=== PATIENT | male | born 1965 | race Caucasian/White ===

== ENCOUNTER 2020-01-26 11:56 | Emergency (ER) | payer MEDICARE, MEDICAID, SELFPAY ==
[2020-01-26 12:20] VITALS: BP 136/85; PULSE 91; RESP 16; TEMP 37.1; O2SAT 98
--- NOTE | 2020-01-26 12:29 | ED.NAVMDI ---
HPI - Nausea/Vomiting/Diarrhea General Chief complaint: Unspecified Stated complaint: opioid withdraw Time Seen by Provider: 01/26/20 12:25 Source: patient Mode of arrival: ambulatory Limitations: no limitations History of Present Illness HPI Narrative: 54-year-old man comes in today complaining of shaking, sweating, diarrhea and vomiting which started the last day or so. He states that up until a few days ago he was taking 15 mg of long-acting morphine twice a day for chronic back pain. He decided that he no longer wanted take the medicine and quit. He denies any chest pain, shortness breath, blood in his stool, blood in his vomitus, weakness or syncope. Patient was seen [facility] and on January 18 he spoke to them regarding a scheduled virtual visit, telling them that he was no longer need their services and be transferring to a new doctor. MD elicited complaint: nausea, vomiting and diarrhea Onset (ago): day(s) (1-2) Description of vomiting: watery Description of diarrhea: watery Associated nausea: Yes Associated abdominal pain: No Location of pain: none Exacerbating factors: eating Relieving factors: none Associated symptoms: diaphoresis, loss of appetite and nausea/vomiting Treatment prior to arrival: none Related Data Home Medications Medication Instructions Recorded Confirmed atorvastatin 20 mg PO DAILY 01/26/20 01/26/20 duloxetine 60 mg PO DAILY 01/26/20 01/26/20 metoprolol succinate 25 mg PO DAILY 01/26/20 01/26/20 pregabalin 150 mg PO BID 01/26/20 01/26/20 Allergies Allergy/AdvReac Type Severity Reaction Status Date / Time No Known Allergies Allergy Verified 01/26/20 13:46 Review of Systems Constitutional: Constitutional: Denies chills and Denies fever(s) Eyes: Eyes: Denies change in vision and Denies photophobia ENT: Denies dysphagia, Denies nasal congestion and Denies sore throat Cardiovascular: Cardiovascular: Denies chest pain and Denies radiating jaw, neck or arm pain Respiratory: Respiratory: Denies cough, Denies dyspnea and Denies wheezing Gastrointestinal: Gastrointestinal: Denies abdominal pain, Reports diarrhea, Reports nausea and Reports vomiting Genitourinary: Genitourinary: Denies hematuria, Denies dysuria and Denies urinary frequency Integumentary/Breasts: Skin/Breast: Denies pruritus, Denies erythema and Denies rash Neurologic: Denies vertigo, Denies dizziness, Denies syncope, Denies focal weakness and Denies numbness Psychiatric: Psychiatric: Denies anxiety and Denies depression Endocrine: Endocrine: Denies fatigue, Denies polydipsia and Denies polyuria Hematologic/Lymphatic: Hematologic/Lymphatic: Denies easy bleeding and Denies easy bruising Allergic/Immunologic: Allergic/Immunologic: Denies lip swelling, Denies throat swelling and Denies tongue swelling PMFSH Past Medical History Medical History Chronic back pain Surgical History Surgical History H/O lumbosacral spine surgery H/O shoulder surgery left x2 History of ankle surgery right Hx of right knee surgery S/P insertion of spinal cord stimulator Social History Social History Alcohol intake: former Alcohol use details: last used several months ago Substance use: current Substance use type: marijuana Living arrangements: with family Gender identity (if verbalized by the patient): Male Exam Const: General: healthy appearing and alert Orientation/consciousness: patient oriented x3 Limitations: no limitations Other: mild acute distress. HENMT: Head: normal to inspection Ears: external ears normal, TM's normal bilaterally and EAC's normal General nose exam: Normal nares present Face and sinus: normal facial exam Mouth: Yes moist mucous membranes Throat: posterior oropharynx normal Eyes: Cornea: corneas normal
[2020-01-26] MEDS: SODIUM CHLORIDE 0.9% IV 1,000 ML 999 ML IV CONT (12:39)
[2020-01-26] MEDS: ONDANSETRON INJ 4 MG/2 ML VIAL IV PUSH (12:39)
[2020-01-26 12:51] LABS: Basophils Absolute Auto 0.09 K/mm3 (0.00-0.10); Basophils Percent Auto 0.8 % (0.0-1.0); Eosinophils Absolute Auto 0.18 K/mm3 (0.02-0.50); Eosinophils Percent Auto 1.6 % (1.0-6.0); Immature Granulocyte Absolute 0.03 K/mm3 (0.00-0.00); Immature Granulocyte Percent A 0.3 % (0.0-0.0); Lymphocytes Absolute Auto 3.16 K/mm3 (1.10-4.50); Lymphocytes Percent Auto 28.7 % (18.0-42.0); Mean Corpuscular Volume 91.2 fL (78.0-102.0); Mean Platelet Volume 12.5 fl (8.7-11.0); Monocytes Absolute Auto 0.91 K/mm3 (0.10-0.90); Monocytes Percent Auto 8.3 % (2.0-11.0); Neutrophils Absolute Auto 6.7 K/mm3 (1.7-7.2); Neutrophils Percent Auto 60.3 % (50.0-70.0); Platelet Count Result 235 K/mm3 (150-420); Red Blood Count 5.48 M/mm3 (4.70-6.10); Red Cell Distribution Width 12.2 % (11.6-14.4)
[2020-01-26 13:06] LABS: Alanine Aminotransferase 83 U/L (16-63); Albumin Level 3.8 g/dL (3.4-5.0); Alkaline Phosphatase 79 U/L (46-116); Anion Gap 10 mmol/L (8-16); Aspartate Amino Transferase 47 U/L (15-37); Bilirubin,Total 0.9 mg/dL (0.00-1.00); Blood Urea Nitrogen 13 mg/dL (7-18); Calcium 9.4 mg/dL (8.5-10.1); Carbon Dioxide 25 mmol/L (21-32); Chloride 104 mmol/L (98-108); Estimated Glomerular Filt Rate > 60; Glucose 119 mg/dL (70-99); Osmolality Calculated 289 mOsm/kg (285-295); Potassium 3.9 mmol/L (3.5-5.1); Sodium 139 mmol/L (136-145); Total Protein 7.8 g/dL (6.4-8.2)
[2020-01-26 13:47] VITALS: BP 150/96
== END 2020-01-26 13:51 | disposition home or self-care (01) ==
PROVIDERS: Emergency Provider Emergency Medicine
DX: F11.23 Opioid dependence with withdrawal (principal)
CPT/HCPCS: 36415; 80053; 85025; 96361; 96374; 99283; 99284; J2405; J7030

== ENCOUNTER 2021-05-02 13:02 | Outpatient (RCR) | payer MEDICARE, MEDICAID, SELFPAY ==
--- NOTE | 2021-05-02 14:16 | PTOPEVAL ---
Thank you for referring Baldev Natarajan II to [facility].? The patient is scheduled to be seen for therapy? __3__x/week for 12 visits. Please review, sign, date and return this plan of care YUNG. I agree with and certify that the following plan of care is medically necessary. Referring Physician Date Admitting Provider: Attending Provider: Mikael Dowd, MD Referring Provider: *PT Outpatient Evaluation Start: 05/02/21 13:05 Freq: Status: Active Protocol: Document 05/02/21 13:05 ELPIDIO (Rec: 05/02/21 14:15 ELPIDIO [email or web address]) Therapy Assessment Status Assessment Status Assessment Status Evaluation Outpatient Past Medical History Cardiovascular History Hx Hypercholesterolemia Yes Hx Hypertension Yes Musculoskeletal History Hx Arthritis Yes Hx Back Injury Yes Hx Back Pain Yes Hx Orthopedic Surgery Yes: BACK, CTR, ANKLE, HIP Pain History Has Past Pain Affected Your Daily Life Yes History of Long-Term Prescription Pain Yes Medication Use (Opiates) Evaluation Information Problem Diagnosis left shoulder pain Onset 03/02/21 Subjective Information Pt. reports that he began Query Text:As Reported By Patient/ developing left shoulder pain Family a couple months ago. He reports no incident, just a gradual onset of pain. He reports that he will have a pop in his left shoulder with movement. He states that any reaching overhead or behind his back is painful. He reports that he has had 2 rotator cuff repairs at the left shoulder in the past. He states that he has difficulty with performing basic household work due to pain and cannot sleep well due to left shoulder pain. He reports that his goal is to decrease his left shoulder pain. Prior Level of Function Activity Level (Last 3 Months) Hand Dominance Ambidextrous Activity of Daily Living Ability Independent Indoor/Home Mobility Independent Community Mobility Independent Stairs Ability Independent Functional Cognition (Planning, Shopping Needs Some Help , Taking Medications) Cooking Yes Cleaning Yes Laundry Yes
--- NOTE | 2021-07-19 07:45 | PCPTNOTE ---
Mr. Natarajan attended a total of 5 treatment sessions from 05/02/21 to 05/26/21. He has failed to contact the clinic and cannot be reached via telephone. He will be discharged from our care. Refer to pt. last Rx note for pt. discharge status.
== END 2021-05-26 13:52 | disposition home or self-care (01) ==
LOC: CHSPT 13:02
PROVIDERS: Visit Provider Anesthesiology Pain Medicine
DX: M25.512 Pain in left shoulder (principal)
CPT/HCPCS: 97014; 97110; 97161; G0283

== ENCOUNTER 2021-06-01 09:13 | Outpatient (CLI) | payer MEDICARE, SELFPAY ==
[2021-06-01 10:18] LABS: SARS-CoV-2 RNA PCR Negative (Negative)
== END 2021-06-01 09:14 | disposition home or self-care (01) ==
LOC: CHSLAB 09:16
PROVIDERS: PCP Family Medicine Sports Medicine; Visit Provider Nurse Practitioner Family
DX: R05.9 Cough, unspecified (principal); Z20.822 Contact with and (suspected) exposure to COVID-19
CPT/HCPCS: C9803; U0003; U0005

== ENCOUNTER 2021-08-27 12:01 | Emergency (ER) | payer MEDICARE, MEDICAID, SELFPAY ==
[2021-08-27 12:11] VITALS: BP 150/83; PULSE 95; RESP 16; TEMP 36.4; O2SAT 98
--- NOTE | 2021-08-27 12:17 | ED.UPPEXIN ---
HPI - Extremity Injury (Upper) General Chief Complaint: Wound/Laceration Stated Complaint: R index finger lac Time Seen by Provider: 08/27/21 12:17 Source: patient and RN notes reviewed Mode of arrival: ambulatory Limitations: no limitations History of Present Illness complaint: injury to: right Onset (ago): minute(s) (30) Other Extremity Injury: Right: fingers (index) Handedness: right Place: home Severity: mild Relieving factors: rest Exacerbating factors: movement of extremity Context: laceration Associated symptoms: denies other symptoms Related Data Home Medications Medication Instructions Recorded Confirmed atorvastatin 20 mg PO DAILY 01/26/20 08/27/21 duloxetine 60 mg PO DAILY 01/26/20 08/27/21 metoprolol succinate 25 mg PO DAILY 01/26/20 08/27/21 pregabalin 150 mg PO BID 01/26/20 08/27/21 Allergies Allergy/AdvReac Type Severity Reaction Status Date / Time No Known Allergies Allergy Verified 08/27/21 12:17 Review of Systems Review of Systems: All systems reviewed & are unremarkable except as noted in HPI and below PMFSH Past Medical History Medical History (Updated 08/27/21 @ 13:03 by Martinez Zhu MD) Chronic back pain COPD (chronic obstructive pulmonary disease) Depression Hypertension Surgical History Surgical History H/O lumbosacral spine surgery H/O shoulder surgery left x2 History of ankle surgery right Hx of right knee surgery S/P insertion of spinal cord stimulator Social History Social History (Updated 08/27/21 @ 12:28 by Martinez Zhu MD) Smoking status: Current every day smoker Tobacco type: cigarettes Alcohol intake: former Alcohol use details: last used several months ago Substance use: current Substance use type: marijuana Gender identity (if verbalized by the patient): Male Exam Const: General: healthy appearing, no acute distress and alert Nutritional Appearance: well nourished Orientation/consciousness: patient oriented x3 HENMT: Head: normal to inspection Ears: external ears normal Eyes: Conjunctivae: conjunctivae normal Pupils: Equal, round and reactive pupils present EOM: EOMs intact bilaterally Neck: Neck: normal visual inspection Resp: Effort & Inspection: normal respiratory effort Auscultation: clear to auscultation bilaterally Cardio: Rate: regular rate Rhythm: regular rhythm GI: GI Palp: Yes Soft to palpation and No Tenderness to palpation present (GI) Auscultation: normal bowel sounds Back/Spine/Pelvis: Cervical Spine: cervical ROM normal Thoracic/Lumbar Spine: thoraco-lumbar ROM normal Skin: General skin exam: normal color Wounds: wounds noted flap right distal 2nd finger size (3.5 cm) Neuro: General: patient oriented x3, moves all extremities, no focal motor deficits and CN's II-XI intact bilaterally Speech: normal speech Gait exam (Neuro): Normal gait present Extrem: General: normal to inspection and no clubbing, cyanosis or edema Psych: Appearance: grossly normal and well kempt Mental Status: mental status grossly normal Affect: normal affect Thought content: Yes Normal thought content present Course Vital Signs Vital signs: Vital Signs Temperature 36.4 C L 08/27/21 12:11 Pulse Rate 95 08/27/21 12:11 Respiratory Rate 16 08/27/21 12:11 Blood Pressure 150/83 H 08/27/21 12:11 Pulse Oximetry 98 08/27/21 12:11 Temperature 36.8 C 08/27/21 13:14 Pulse Rate 79 08/27/21 13:14 Respiratory Rate 16 08/27/21 13:14 Blood Pressure 132/83 08/27/21 13:14 Pulse Oximetry 100 08/27/21 13:14 Procedures Laceration Laceration 1: Date: 08/27/21 Site: hand (index, medial just distal to the DIP) Side (If applicable): right Description: flap Depth: simple, single layer Local Anesthetic: lidocaine 1% ( digital nerve block) Amount of anesthesia used (mL): 7 Pre-repair: wound explor
[2021-08-27] MEDS: TETANUS,DIPHTHERIA,AC PERTUSSIS ADULT 0.5 ML (ADACEL) IM (12:31)
[2021-08-27] MEDS: LIDOCAINE HCL 1% LOCAL INJ 20 ML VIAL INFILTRATE (12:32)
[2021-08-27 13:14] VITALS: BP 132/83; PULSE 79; RESP 16; TEMP 36.8; O2SAT 100
[2021-08-27] MEDS: NEOMYCIN/POLYMYXIN/BACITRACIN OINTMENT PACKET 1 PACKET TOPICAL (13:14)
== END 2021-08-27 13:16 | disposition home or self-care (01) ==
PROVIDERS: Emergency Provider Emergency Medicine; PCP Family Medicine Sports Medicine
DX: S61.210A Laceration without foreign body of right index finger without damage to nail, initial encounter (principal); W45.8XXA Other foreign body or object entering through skin, initial encounter; J44.9 Chronic obstructive pulmonary disease, unspecified; I10 Essential (primary) hypertension; F17.200 Nicotine dependence, unspecified, uncomplicated
CPT/HCPCS: 12001; 90471; 90715; 99282

== ENCOUNTER 2021-10-09 10:18 | Outpatient (RCR) | payer MEDICARE, MEDICAID, SELFPAY ==
--- NOTE | 2021-10-09 10:10 | PTOPEVAL ---
Thank you for referring Baldev Natarajan II to [facility].? The patient is scheduled to be seen for therapy? __3__x/week for 12 visits. Please review, sign, date and return this plan of care YUNG. I agree with and certify that the following plan of care is medically necessary. Referring Physician Date Admitting Provider: Attending Provider: Paz Doss, GRAZING AIDE Referring Provider: *PT Outpatient Evaluation Start: 10/09/21 08:59 Freq: Status: Active Protocol: Document 10/09/21 09:00 ELPIDIO (Rec: 10/09/21 09:44 ELPIDIO [email or web address]) Therapy Assessment Status Assessment Status Assessment Status Evaluation Outpatient Past Medical History Cardiovascular History Hx Hypercholesterolemia Yes Hx Hypertension Yes Musculoskeletal History Hx Arthritis Yes Hx Back Injury Yes Hx Back Pain Yes Hx Orthopedic Surgery Yes: BACK, CTR, ANKLE, HIP Pain History Has Past Pain Affected Your Daily Life Yes History of Long-Term Prescription Pain Yes Medication Use (Opiates) Evaluation Information Problem Diagnosis s/p reverse total shoulder arthroplasty Onset 09/18/21 Subjective Information Pt. reports that he underwent Query Text:As Reported By Patient/ CTR, UNT, and reverse TSA on 4 Family . He reports that he was in a sling for only 1 day following surgery. He reports that he still has constant pain on the back side of the left shoulder and into the elbow. He reports that simple tasks such as pulling up his pants is difficult. He reports that he cannot reach overhead with the left arm as well. He states that his goal for therapy is to improve his left arm mobility. Prior Level of Function Activity Level (Last 3 Months) Hand Dominance Left Activity of Daily Living Ability Independent Indoor/Home Mobility Independent Community Mobility Independent Stairs Ability Independent Functional Cognition (Planning, Shopping Independent , Taking Medications) Cooking Yes Cleaning Yes Laundry Yes Shopping Yes Driving Yes Comments Additional Prior Level of Function Pt. has some assist with Comments
--- NOTE | 2022-01-24 08:46 | PCPTNOTE ---
Mr. Natarajan attended a total of 8 treatment sessions from 10/09/21 to 11/03/21. He has failed to return to the clinic and will be discharged from our care. Refer to last daily note for pt. discharge status.
== END 2021-11-03 23:59 | disposition home or self-care (01) ==
LOC: CHSPT 10:18
PROVIDERS: Visit Provider Nurse Practitioner Family
DX: Z96.612 Presence of left artificial shoulder joint (principal); M75.102 Unspecified rotator cuff tear or rupture of left shoulder, not specified as traumatic; M12.812 Other specific arthropathies, not elsewhere classified, left shoulder; G56.02 Carpal tunnel syndrome, left upper limb; G56.22 Lesion of ulnar nerve, left upper limb; Z48.89 Encounter for other specified surgical aftercare
CPT/HCPCS: 97014; 97110; 97140; 97161; G0283

== ENCOUNTER 2022-08-16 13:00 | Outpatient (RCR) | payer MEDICARE, MEDICAID, SELFPAY ==
--- NOTE | 2022-08-22 06:43 | BUPTOPEVAL1 ---
Assessment and note entered by Sohan Conway Evaluation Information Diagnosis right shoulder pain Onset 07/25/22 Subjective Information Pt. reports that he fell onto the right shoulder about 3 weeks ago while taking out the trash. He reports that pain is located on top of the right shoulder and in front. He reports that he notices pain with reaching across the body and behind his back. He is right hand dominant. He reports pain is most notable with lifitng. Reported Pain Level Pain Score 5: Self Report Assessment PT Clinical Summary Pt. is a 57 year old male who enters the clinic with right shoulder pain. Pt. presentation on this date is consistent with right shoulder impingement syndrome. Continued skilled PT is indicated in order to improve right shoulder mobility and strength in order to improve comfort and efficiency with IADL's. Plan of Care Interventions Electrical Stimulation,Hot Pack/Cold Pack,Manual Therapy,Neuro Re-education,Therapeutic Activities, Therapeutic Exercise PT Services Indicated Yes Treatment Frequency and 2x/week x 10 visits Duration These treatments will address the objective and functional deficits as defined above. The patient will be advanced safely and appropriately in order for the patient to progress towards his/her prior level of function. Additional exercises will be introduced and as well as a comprehensive home exercise program upon discharge, if needed, ?to ensure carryover of functional gains achieved in the clinic. This treatment plan has been reviewed and agreement upon by the patient.
== END 2022-08-28 09:56 | disposition home or self-care (01) ==
LOC: CHSPT 13:00
PROVIDERS: Visit Provider Family Medicine Sports Medicine
DX: M25.511 Pain in right shoulder (principal)
CPT/HCPCS: 97110; 97140; 97161

== ENCOUNTER 2022-10-20 10:40 | Emergency (ER) | payer MEDICARE, MEDICAID, SELFPAY ==
[2022-10-20 10:43] VITALS: BP 155/85; PULSE 89; RESP 20; TEMP 36.8; O2SAT 97
--- NOTE | 2022-10-20 11:25 | ED.WOUNDLAC ---
HPI - Wound/Laceration General Chief Complaint: Wound/Laceration Stated Complaint: L finger laceration Time Seen by Provider: 10/20/22 11:00 Source: patient Mode of arrival: ambulatory Limitations: no limitations History of Present Illness HPI narrative: this is a 57-year-old gentleman presents with a laceration left 3rd finger and knuckle area of the left finger non gaping approximated with approximately1.5cm laceration that occurred earlier today while he was working on his vehicle. There is no numbness or tingling has good range of motion. Onset (ago): hour(s) Location: other Extremity Location: Left: hand ( non gaping laceration knuckle of his left 3rd finger) Place: work Related Data Home Medications Medication Instructions Recorded Confirmed atorvastatin 20 mg tablet 20 mg PO DAILY 01/26/20 10/20/22 duloxetine 60 mg capsule,delayed 60 mg PO DAILY 01/26/20 10/20/22 release metoprolol succinate 25 mg 25 mg PO DAILY 01/26/20 10/20/22 tablet,extended release 24 hr pregabalin 150 mg capsule 150 mg PO BID 01/26/20 10/20/22 Allergies Allergy/AdvReac Type Severity Reaction Status Date / Time No Known Allergies Allergy Verified 10/20/22 11:21 Review of Systems Review of Systems: All systems reviewed & are unremarkable except as noted in HPI and below PMFSH Past Medical History Medical History Chronic back pain COPD (chronic obstructive pulmonary disease) Depression Hypertension Surgical History Surgical History H/O lumbosacral spine surgery H/O shoulder surgery left x2 History of ankle surgery right Hx of right knee surgery S/P insertion of spinal cord stimulator Social History Social History Smoking status: Current every day smoker Tobacco type: cigarettes Alcohol intake: former Alcohol use details: last used several months ago Substance use: current Substance use type: marijuana Living arrangements: with family Gender identity (if verbalized by the patient): Male Exam Const: General: healthy appearing Nutritional Appearance: well nourished Orientation/consciousness: patient oriented x3 HENMT: Head: normal to inspection Eyes: Conjunctivae: conjunctivae normal Pupils: Equal, round and reactive pupils present Neck: Neck: normal visual inspection Chest: Chest palpation & inspection: normal inspection of the chest Cardio: Rate: regular rate Rhythm: regular rhythm GI: GI Palp: Yes Soft to palpation Urinary Catheter: Urinary Catheter: patent and draining Skin: General skin exam: normal color Wounds: wounds noted Neuro: General: patient oriented x3 Cranial nerves: Yes Nystagmus not present Extrem: General: normal to inspection Psych: Mental Status: mental status grossly normal Affect: normal affect Course Course Emergency Course: Patient is here today with his tetanus and did use Dermabond to close the laceration area on his left 3rd finger. Vital Signs Vital signs: Vital Signs Temperature 36.8 C 10/20/22 10:43 Pulse Rate 89 10/20/22 10:43 Respiratory Rate 20 10/20/22 10:43 Blood Pressure 155/85 H 10/20/22 10:43 Pulse Oximetry 97 10/20/22 10:43 Oxygen Delivery Room Air 10/20/22 10:43 Temperature 36.8 C 10/20/22 10:43 Pulse Rate 89 10/20/22 10:43 Respiratory Rate 20 10/20/22 10:43 Blood Pressure 155/85 H 10/20/22 10:43 Pulse Oximetry 97 10/20/22 10:43 Oxygen Delivery Room Air 10/20/22 10:43 Procedures Laceration Laceration 1: Date: 10/20/22 Time: 11:29 Site: upper extremity Side (If applicable): left Size (cm): 1.5 Description: linear Depth: simple, single layer Pre-repair: irrigated extensively ====== Skin Level ====== Skin layer closed with: dermabond ====
[2022-10-20 11:40] VITALS: BP 150/80; PULSE 82; RESP 20; TEMP 36.7; O2SAT 98
== END 2022-10-20 11:40 | disposition home or self-care (01) ==
PROVIDERS: Emergency Provider Emergency Medicine
DX: S61.213A Laceration without foreign body of left middle finger without damage to nail, initial encounter (principal); I10 Essential (primary) hypertension; F17.210 Nicotine dependence, cigarettes, uncomplicated; W45.8XXA Other foreign body or object entering through skin, initial encounter
CPT/HCPCS: 12001; 99282

== ENCOUNTER 2023-03-28 15:13 | Emergency (ER) | payer MEDICARE, MEDICAID, SELFPAY ==
--- NOTE | ~2023-03-28 | XR_ITS ---
XR hand LT min 3V DATE: 03/28/2023 15:50 INDICATION: Fall. Medial swelling TECHNIQUE: 3 views COMPARISON: None FINDINGS: There is osteophytic change at the triscaphe and first carpometacarpal joints. There is a p rominent cyst in the distal navicular bone. There is mild osteoarthritis at first metacarpophalangeal and some interphalangeal joints. No fracture, dislocation, periosteal reaction or bone destruction is detected. IMPRESSION: Benign cyst distal navicular bone Polyarticular osteoarthritis No recent fracture or dislocation is detected Reviewed, dictated and finalized at location L.
--- NOTE | ~2023-03-28 | XR_ITS ---
XR wrist LT min 3V DATE: 03/28/2023 15:50 INDICATION: Fall. Medial swelling TECHNIQUE: 4 views COMPARISON: None FINDINGS: No recent fracture is detected. There is osteophytic change of the triscaphe and first carpometacarpal joints. No chondrocalcinosis. IMPRESSION: Osteoarthritis Reviewed, dictated and finalized at location L. IMPRESSION: Osteoarthritis
[2023-03-28 15:15] VITALS: BP 149/97; PULSE 90; RESP 17; TEMP 36.9; O2SAT 96
[2023-03-28] MEDS: KETOROLAC (*BKC) 60 MG/2 ML VIAL IM (15:40)
--- NOTE | 2023-03-28 16:08 | ED.UPPEXIN ---
HPI - Extremity Injury (Upper) General Chief Complaint: Extremity Injury, Upper Stated Complaint: left hand pain Time Seen by Provider: 03/28/23 15:18 Source: patient Limitations: no limitations History of Present Illness HPI narrative: this is a 52-year-old male who presents after he fell last evening while going to the bathroom and as he returned missed sitting on the bed and injured his left hand and wrist, has a good range of motion although it is swollen and tender with touch with no numbness or tingling. complaint: injury to: left Onset (ago): day(s) Other Extremity Injury: Left: hand ( swelling) and wrist ( swelling and tenderness) Handedness: left Severity scale (1-10): 6 Context: direct blow Related Data Home Medications Medication Instructions Recorded Confirmed atorvastatin 20 mg tablet 20 mg PO DAILY 01/26/20 03/28/23 duloxetine 60 mg capsule,delayed 60 mg PO DAILY 01/26/20 03/28/23 release metoprolol succinate 25 mg 25 mg PO DAILY 01/26/20 03/28/23 tablet,extended release 24 hr tamsulosin 0.4 mg capsule 0.4 mg PO DAILY 03/28/23 03/28/23 Allergies Allergy/AdvReac Type Severity Reaction Status Date / Time No Known Allergies Allergy Verified 03/28/23 15:14 Review of Systems Review of Systems: All systems reviewed & are unremarkable except as noted in HPI and below PMFSH Past Medical History Medical History Chronic back pain COPD (chronic obstructive pulmonary disease) Depression Hypertension Surgical History Surgical History H/O lumbosacral spine surgery H/O shoulder surgery left x2 History of ankle surgery right Hx of right knee surgery S/P insertion of spinal cord stimulator Social History Social History Smoking status: Current every day smoker Tobacco type: cigarettes Alcohol intake: former Alcohol use details: last used several months ago Substance use: current Substance use type: marijuana Living arrangements: with family Gender identity (if verbalized by the patient): Male Exam Const: General: healthy appearing Nutritional Appearance: well nourished Orientation/consciousness: patient oriented x3 Limitations: no limitations Neck: Neck: normal visual inspection and no lymphadenopathy Chest: Chest palpation & inspection: normal inspection of the chest Resp: Effort & Inspection: normal respiratory effort Auscultation: clear to auscultation bilaterally Cardio: Rate: regular rate Rhythm: regular rhythm Skin: General skin exam: normal color Rashes: no rashes Neuro: General: patient oriented x3 and moves all extremities Extrem: Other: Swollen lateral left hand and wrist Psych: Mental Status: mental status grossly normal Affect: normal affect Course Course Emergency Course: patient had ice applied to his left hand and wrist was given 60mg IM Toradol and reassessment pain level has improved, x-rays reviewed and has no acute fractures. Vital Signs Vital signs: Vital Signs Temperature 36.9 C 03/28/23 15:15 Pulse Rate 90 03/28/23 15:15 Respiratory Rate 17 03/28/23 15:15 Blood Pressure 149/97 H 03/28/23 15:15 Pulse Oximetry 96 03/28/23 15:15 Oxygen Delivery Room Air 03/28/23 15:15 Temperature 36.9 C 03/28/23 15:15 Pulse Rate 90 03/28/23 15:15 Respiratory Rate 17 03/28/23 15:15 Blood Pressure 149/97 H 03/28/23 15:15 Pulse Oximetry 96 03/28/23 15:15 Oxygen Delivery Room Air 03/28/23 15:15 Critical Care Time Critical Care Time Critical Care Time: No Discharge Plan Discharge Clinical Impression: Sprain of hand, left Qualifiers: Encounter type: initial encounter Qualified Code(s): S63.92XA - Sprain of unspecified part of left wrist and hand, initial encounter Patient Disposition: Home, Self-Care Condition: Sta
[2023-03-28 16:22] VITALS: BP 149/97; PULSE 90; RESP 17; TEMP 36.9; O2SAT 96
== END 2023-03-28 16:22 | disposition home or self-care (01) ==
PROVIDERS: Emergency Provider Emergency Medicine; PCP Family Medicine Sports Medicine
DX: S63.92XA Sprain of unspecified part of left wrist and hand, initial encounter (principal); J44.9 Chronic obstructive pulmonary disease, unspecified; I10 Essential (primary) hypertension; F17.210 Nicotine dependence, cigarettes, uncomplicated; Z79.899 Other long term (current) drug therapy; W18.30XA Fall on same level, unspecified, initial encounter
CPT/HCPCS: 73110; 73130; 96372; 99283; J1885

== ENCOUNTER 2023-05-28 08:31 | Outpatient (RCR) | payer MEDICARE, MEDICAID, SELFPAY ==
[2023-05-28 08:35] VITALS: BP_SYST 158
--- NOTE | 2023-05-28 09:29 | OPREHPOC ---
Outpatient Therapy Plan of Care This is a Multidisciplinary Plan of Care that may contain components documented by all disciplines (PT, OT, and ST.) PT Problem 1 PT Problem #1 Knowledge Deficit PT Goal 1 Goal Patient to demonstrate independence with HEP Target Visit 5 PT Problem 2 PT Problem #2 Pain PT Goal 1 Goal 1. Patient to report highest pain at 2/10 2. Patient to report ability to sleep with no disturbance due to L shoulder pain Target Visit 10 PT Problem 3 PT Problem #3 Impaired Range of Motion PT Goal 1 Goal 1. Patient to demonstrate L shoulder active flexion to 150 deg to reach to cabinets 2. Patient to demonstrate L shoulder IR reach to mid lumbar spine to don belt Target Visit 10 PT Problem 4 PT Problem #4 Impaired Strength PT Goal 1 Goal Patient to demonstrate 4+/5 strength of the L shoulder to return to heavy house hold tasks at PLOF Target Visit 10 PT Problem 5 PT Problem #5 Impaired Functional Mobil PT Goal 1 Goal 1. patient to score 20% improvement on Quickdash scoring 2. Patient to report ability to fold laundry with no increase in L shoulder pain. Target Visit 10
--- NOTE | 2023-05-28 09:30 | PTOPEVAL1 ---
Assessment and note entered by Lisa Novak DPT Evaluation Information Assessment Status Evaluation Diagnosis L shoulder pain Onset 05/22/23 Subjective Information Patient reports he fell on Mar 28 and since then has had L shoulder pain. He reports he has a history of L TSA in August of 2021. Since then patient has had difficulty with vacuuming, laudry, and reaching over head. He also reports difficulty sleeping. He reports he has had x-rays and had negative results. He reports he has been icing his shoulder. He reports he is not working and on disability. He returns to [place] on 06/11/23. Reported Pain Level Pain Score 3: Self Report Assessment PT Clinical Summary Mr. Natarajan is a 58 year old male who presents to PT with L shoulder pain. Patient demonstrates decreased active L shoulder ROM, decreased L shoulder strength and increased pain limiting his ability to perform house hold tasks, sleep and reach over head. He would benefit from skilled PT to address impairments and return to [facility]. Plan of Care Interventions Electrical Stimulation,Hot Pack/Cold Pack,Manual Therapy,Mechanical Traction,Neuro Re-education, Patient/Caregiver Educati,Therapeutic Activities, Therapeutic Exercise PT Services Indicated Yes Treatment Frequency and 2x weekly for 10 visits Duration These treatments will address the objective and functional deficits as defined above. The patient will be advanced safely and appropriately in order for the patient to progress towards his/her prior level of function. Additional exercises will be introduced and as well as a comprehensive home exercise program upon discharge, if needed, ?to ensure carryover of functional gains achieved in the clinic. This treatment plan has been reviewed and agreement upon by the patient.
--- NOTE | 2023-08-29 08:38 | PCPTNOTE ---
patient discharged due to holding futher appointments due to increased pain and inability to tolerate session
== END 2023-06-12 20:00 | disposition home or self-care (01) ==
LOC: CHSPT 08:31
PROVIDERS: Visit Provider Orthopaedic Surgery
DX: Z47.1 Aftercare following joint replacement surgery (principal)
CPT/HCPCS: 97014; 97110; 97161; G0283

== ENCOUNTER 2023-11-13 08:50 | Outpatient (RCR) | payer MEDICARE, MEDICAID, SELFPAY ==
--- NOTE | 2023-11-13 10:03 | OPREHPOC ---
Outpatient Therapy Plan of Care This is a Multidisciplinary Plan of Care that may contain components documented by all disciplines (PT, OT, and ST.) PT Problem 1 PT Problem #1 Knowledge Deficit PT Goal 1 Goal The patient will be independent in a home exercise program. Target Visit 4 PT Problem 2 PT Problem #2 Pain PT Goal 1 Goal The patient will report no greater than 4/10 pain with ADLs. Target Visit 18 PT Problem 3 PT Problem #3 Impaired Range of Motion PT Goal 1 Goal The patient will demonstrate 50 degrees of cervical rotation bilaterally to improve safety with driving. Target Visit 18 PT Problem 4 PT Problem #4 Impaired Functional Mobil PT Goal 1 Goal The patient will demonstrate 30% or less of self perceived disability per the Neck Disability Index questionnaire. 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 Target Visit 18
--- NOTE | 2023-11-13 10:03 | PTOPEVAL1 ---
Assessment and note entered by Nighat Mensah, PT Evaluation Information Assessment Status Evaluation Diagnosis Cervical Radiculopathy & Stenosis Onset 11/06/23 Subjective Information Baldev Natarajan reports he had injections and PT for his left shoulder last year and he was not getting improvements so he had a MRI of his cervical spine. He does not recall what the MRI showed exactly but he knows he has issues with his neck causing nerve irritation. He had an injection in the cervical spine about 3 months ago that helped his pain for about a month. He saw his pain management doctor last week for his lower back and he also discussed his neck. His pain management doctor referred him to a spine surgeon for his neck and PT. He notes if he looks up at the TV mounted on his wall for too long he gets pain and tingling in his left more than right arm. He also has difficulty reaching and lifting with the left arm, driving, and sleeping. He is having to turn his whole body to look to the side instead of his head. Reported Pain Level Pain Score 3: Self Report Assessment PT Clinical Summary Baldev Natarajan presents with cervical radiculopathy and stenosis. He has difficulty with turning his head, looking up, driving, sleeping, reaching and lifting with the left arm. He is having referral of pain and parathesias into the left > right UE. He objectively demonstrates decreased and painful cervical AROM, tension and tenderness in the cervical paraspinals, and positive special tests for cervical nerve root impingement. He will benefit from skilled PT to address these limitations. Plan of Care Interventions Hot Pack/Cold Pack,Manual Therapy,Mechanical Traction,Neuro Re-education,Patient/Caregiver Educati,Therapeutic Activities,Therapeutic Exercise PT Services Indicated Yes Treatment Frequency and 3 times a week for 18 visits Duration These treatments will address the objective and functional deficits as defined above. The patient will be advanced safely and appropriately in order for the patient to progress towards his/her prior level of function. Additional exercises will be introduced and as well as a comprehensive home exercise program upon discharge, if needed, ?to ensure carryover of functional gains achieved in the clinic. This treatment plan has been reviewed and agreement upon by the patient.
--- NOTE | 2023-11-27 13:03 | PCPTNOTE ---
Patient cancelled session today. Reports he will not make it back from [place] in time.
--- NOTE | 2023-11-29 15:23 | PCPTNOTE ---
Patient called & cancelled scheduled appointment this date due to [fixing his AC]
--- NOTE | 2024-02-05 07:37 | PTOPDC ---
Assessment and note entered by Nighat Mensah, PT Evaluation Information Assessment Status Discharge - Pt Not Presen Diagnosis Cervical Radiculopathy and Stenosis Onset 11/06/23 Subjective Information Pt not present. He was last seen on 12/06/23 and was reporting increased pain that day. Assessment PT Clinical Summary Pt completed 9 skilled PT visits for cervical radiculopathy and stenosis. He was reporting overall less pain when looking at his pain scale reports. He was not formally reassessed. He is discharged. Plan of Care PT Services Indicated Yes
== END 2023-12-06 14:32 | disposition home or self-care (01) ==
LOC: CHSPT 08:50
PROVIDERS: Visit Provider Anesthesiology Pain Medicine
DX: M54.12 Radiculopathy, cervical region (principal)
CPT/HCPCS: 97012; 97014; 97110; 97140; 97161; G0283

== ENCOUNTER 2024-06-04 14:30 | Outpatient (RCR) | payer MEDICARE, MEDICAID, SELFPAY ==
--- NOTE | 2024-06-04 15:14 | PTOPEVAL1 ---
Assessment and note entered by Sohan Conway Evaluation Information Assessment Status Evaluation Diagnosis neck pain Onset 03/10/23 Subjective Information Pt. reports that he has had pain since March of 2023. He reports that he has left shoulder replacement. He reports that pain is located in the left shoulder and has some stiffness and soreness in the neck. He reports that he has pain attempting to look over the left shoulder while driving. He also describes pain at the left shoulder with reaching away from his body and overhead. He states that sleep is limited due to pain. He states that his ability to turn his head and raise his left arm has declined in recent years. He states that he will get tingling and numbness through the entire left arm on occasion. He reports that his goal for therapy is less pain and for the left arm to work properly. Reported Pain Level Pain Score 3: Self Report Assessment PT Clinical Summary Pt. is a 59 year old male who enters the clinic with neck pain. He presents with impaired postural awareness, impaired c-spine ROM, impaired proximal u.e. strength and pain. Continued skilled PT is indicated in order to improve these areas to allow for improve comfort and efficiency with IADL's. Plan of Care Interventions Electrical Stimulation,Hot Pack/Cold Pack,Manual Therapy,Mechanical Traction,Neuro Re-education, Patient/Caregiver Education,Therapeutic Activities ,Therapeutic Exercise PT Services Indicated Yes Treatment Frequency and 2x/week x 8 visits Duration These treatments will address the objective and functional deficits as defined above. The patient will be advanced safely and appropriately in order for the patient to progress towards his/her prior level of function. Additional exercises will be introduced and as well as a comprehensive home exercise program upon discharge, if needed, ?to ensure carryover of functional gains achieved in the clinic. This treatment plan has been reviewed and agreement upon by the patient.
--- NOTE | 2024-06-24 14:24 | PCPTNOTE ---
Cancelled session. Reports he has frozen pipes under his house he has to take care of.
--- NOTE | 2024-06-29 15:05 | PCPTNOTE ---
Pt. canceled his appointment due to having car trouble.
--- NOTE | 2024-07-01 10:30 | PCPTNOTE ---
Patient did not show up for scheduled appointment this date.
--- NOTE | 2024-07-17 14:40 | OPREHPOC ---
Outpatient Therapy Plan of Care This is a Multidisciplinary Plan of Care that may contain components documented by all disciplines (PT, OT, and ST.) PT Problem 1 PT Problem #1 Knowledge Deficit PT Goal 1 Goal / Goal Update Pt. will be independent with a HEP addressing ROM and postural awareness Target Visit 2 Progress Met PT Problem 2 PT Problem #2 Impaired Range of Motion PT Goal 1 Goal / Goal Update Pt. will achieve 70 degrees left c-spine rotation and 25 degrees left lateral flexion to improve visual field with driving Target Visit 14 Progress Not Met PT Problem 3 PT Problem #3 Impaired Strength PT Goal 1 Goal / Goal Update Pt. will present with 4+/5 bilateral shoulder ER and flexion strength. met for flexion Pt. will improve right fuse cutter strength by 10# in position 2 to improve functional gripping. met Pt. will demonstrate ability to lift 5-10# overhead with the left u.e. without pain increase. met for 5lbs overhead, but increased pain Target Visit 14 Progress Partially Met PT Goal 2 Goal / Goal Update Patient to achieve 70lbs R hand fuse cutter strength Target Visit 14 PT Problem 4 PT Problem #4 Impaired Functional Mobility PT Goal 1 Goal / Goal Update Pt. will present with less than 20% limitation on the NDI indicating significant functional improvement. Target Visit 14 Progress Not Met
--- NOTE | 2024-07-17 14:42 | PTOPREEVAL ---
Assessment and note entered by JT File, PT Evaluation Information Assessment Status Re-evaluation Diagnosis neck pain Onset 03/10/23 Subjective Information patient reports he feels Better overall. however , he reports the pain in the neck still increases with activity. he reports he does no have sharp pain any longer in the L shoulder when he is using it. he reports he can do several loads of laundry before he gets pain in the L shoulder reaching in the washer. Reported Pain Level Pain Score 4: Self Report Assessment PT Clinical Summary mr. [email or web address] presents to skilled PT services for his 8th skilled therapy visit for his neck pain. 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 he has made partial progress towards goals, but continues to lack several goals to improve his functional activity performance. continued skilled PT is indicated to improve his UE strength, cervical mobility, decrease pain, and improve his quality of life/ functional activity performance. Plan of Care Interventions Electrical Stimulation,Hot Pack/Cold Pack,Manual Therapy,Mechanical Traction,Neuro Re-education, Patient/Caregiver Education,Therapeutic Activities ,Therapeutic Exercise PT Services Indicated Yes Treatment Frequency and continue skilled PT 2x weekly for 6 more visits Duration These treatments will address the objective and functional deficits as defined above. The patient will be advanced safely and appropriately in order for the patient to progress towards his/her prior level of function. Additional exercises will be introduced and as well as a comprehensive home exercise program upon discharge, if needed, ?to ensure carryover of functional gains achieved in the clinic. This treatment plan has been reviewed and agreement upon by the patient.
--- NOTE | 2024-07-28 17:23 | PCPTNOTE ---
Patient did not show up for scheduled appointment this date.
--- NOTE | 2024-07-31 15:45 | PCPTNOTE ---
Pt forgot about session and had cortisone injection today.
== END 2024-09-02 23:59 | disposition home or self-care (01) ==
LOC: CHSPT 14:30
PROVIDERS: Visit Provider Neurological Surgery
DX: M54.12 Radiculopathy, cervical region (principal)
CPT/HCPCS: 97012; 97014; 97110; 97140; 97161; G0283

== ENCOUNTER 2025-02-21 14:02 | Emergency (ER) | payer MEDICARE, MEDICAID, SELFPAY ==
--- NOTE | ~2025-02-21 | CT_ITS ---
EXAMINATION: CT lumbar spine wo con COMPARISON: None HISTORY: Onset this AM, LBP radiates anteriorly; worsening. NKI TECHNIQUE: Axial images were obtained through the spine without IV contrast. Coronal, sagittal reconstruction images were obtained from the axial views. CT scan performed using dose optimization techniques including the following automated exposure control; adjustment of mA and/or kV; use of iterative reconstruction technique. Automatic exposure control was used to reduce radiation dose. Permanent radiation dose record is archived to PACS. FINDINGS: Moderate loss of vertebral height, no fracture or subluxation. Moderate loss of disc at L4-5 and L5-S1 with moderate to severe canal and foraminal stenosis. Soft tissues unremarkable. Spinal canal catheter is identified one entering the spinal canal at the level of T11-12 with a second catheter entering at the level of L2-3. Impression: No acute abnormality. Reviewed, dictated and finalized at location A. Impression: No acute abnormality.
--- OUTSIDE RECORDS SUMMARY | 2025-02-21 14:04 | XMS_ITS | Clinical Summary ---
Author Organization [facility] [place] [facility] Address [address] [place] [id number] Care Team Providers Care Spike Machine Feeder Name Role Phone Emerson Schreiber MD Primary Care Provider + Mikael Dowd MD Unavailable [phone] Sohan Owens MD Unavailable [phone] Allergies Active Allergy Reactions Criticality Noted Date Comments Adhesive Rash Medium 02/26/[address] (CYMBALTA) 60 mg capsule Take 1 capsule (60 mg total) by mouth nightly 3 9 Active metoprolol XL (TOPROL-XL) 25 mg 24 hr tablet Take 2 tablets (50 mg total) by mouth daily 1 8 Active xnbemswx-eet-usf ic-vit K-lycop 400-20-300 mcg tabletIndication s:stop 5 days before surgery Take 1 tablet/capsule by mouth daily Active tamsulosin (FLOMAX) 0.4 mg extended release capsule Take 1 capsule (0.4 mg total) by mouth nightly 3 Active atorvastatin (LIPITOR) 20 mg tablet Take 1 tablet (20 mg total) by mouth daily 3 Active camphor-methyl salicyl-menthoL adhesive patch,medicated Apply 1 Application topically as needed Salonpas ointment, shoulder, and hip, lower back Active diclofenac sodium (VOLTAREN) 1 % gel Apply 2 g topically as needed (pain) Shoulder Active UNABLE TO FIND Med Name: pain pump-morphine, bupivacaine, clonidine RLQ. Active apixaban (ELIQUIS) 5 mg tabletIndication s:atrial fibrillation Take 1 tablet (5 mg total) by mouth 2 (two) times a day Active fluticasone propionate (FLONASE) 50 mcg/actuation nasal spray Administer 1 spray into each nostril daily as needed for rhinitis Active umeclidinium-ralf anteroL (ANORO ELLIPTA) 62.5-25 mcg/actuation blister with deviceIndication s:Bronchospasm Prevention with COPD Inhale 1 puff daily Active peg 400-propylene glycol (SYSTANE) 0.4-0.3 % ophthalmic solution Administer 1 drop into both eyes as needed Active levalbuterol (XOPENEX HFA) 45 mcg/actuation inhalerIndicatio ns:Acute Asthma Attack Inhale 2 puffs 3 (three) times a day as needed for wheezing Active HYDROcodone-acet aminophen (NORCO) 5-325 mg per tabletIndication s:Pain Take 1 tablet by mouth every 8 (eight) hours as needed for pain 8 tablet 5 Active Active Problems Problem Noted Date Diagnosed Date Penile cancer 07/27/2024 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 Complete tear of left rotator cuff 07/07/2018 Overview (07/07/2018): Added automatically from request for surgery [id number] Impingement syndrome of left shoulder 07/07/2018 Overview (07/07/2018): Added automatically from request for surgery [id number] Biceps tendinitis of left upper extremity 2018 Overview (07/07/2018): Added automatically from request for surgery [id number] 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 07/07/2018 Overview (07/07/2018): Added automatically from request for surgery [id number] Arthritis of left acromioclavicular joint 2018 Overview (07/07/2018): Added automatically from request for surgery [id number] Chronic pain syndrome 03/07/2018 Somatic symptom disorder, pe rsistent, severe, with predominant pain 03/07/2018 Surgical History Surgery Date Site/Laterality Comments ORIF ANKLE FRACTURE 06/10/2006 - 06/09/2007 Right ROTATOR CUFF REPAIR 06/10/2018 - 06/09/2019 Left TOTAL HIP ARTHROPLASTY 03/10/2014 - 04/09/2014 Right INTRATHECAL PUMP IMPLANTATION 06/10/2018 - 06/09/2019 Ri ght RLQ SHOULDER ARTHROPLASTY 08/08/2020 - 09/07/2020 Left COLONOSCOPY LUMBAR LAMINECTOMY 06/10/2017 - 06/09/2018 SPINAL CORD STIMULATOR IMPLANT 06/10/2018 - 06/09/2019 lt buttock Medical History Medical History Date Comments Hypertension Hypercholesteremia Osteoarthritis Migraines Depression 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 Hepat itis C Penile lesion Presence of intrathecal pump RLQ Lung disease Cancer (HCC) Squamous cell carcinoma, penis (HCC) Wears glasses Full dentures Back pain Atrial fibrillation (HCC) COPD (chronic obstructive pulmonary disease) Emphysema of lung Urinary urgency Wheezing Family History Medical History Relation Name Comments Arthritis Other Hypertension Other Stroke Other Relation Name Status Comments Other Social History Tobacco Use Types Packs/Day Years Used Date Smoking Tobacco: Every Day Cigarettes 0.3 40 Smokeless Tobacco: Never Tobacco Cessation:Ready to Q uit: No; Counseling Given: Yes Comments:Not day of surgery Alcohol Use Standard Drinks/Week Comments Yes 0 (1 standard drink = 0.6 oz pur e alcohol) occasionally AUDIT-C Answer Date Recorded Q1: How often do you have a drink containing alc ohol? 2-3 times a week 09/01/2024 Q2: How many drinks containi ng alcohol do you have on a typical day when you are drinking? 1 or 2 09/01/2024 Q3: How often do you have si x or more drinks on one occasion? Never 09/01/2024 Personal Safety Answer Date Recorded Have you ever been in or are you currently in a harmful physical or emotional relationship or is someone making you feel afraid or unsafe? Denies 09/01/2024 Sex and Gender Information Value Date Recorded Sex Assigned at Not on file Legal Sex Male 4:02 AM [employer] Gender Identity Not on file Sexual Orientation Not on file Obstetrics History Last Filed Vital Signs Vital Sign Reading Time Taken Comments Blood Pressure 143/95 09/01/2024 1:00 PM CDT Pulse 82 09/01/2024 1:00 PM CDT Temperature 36.9 C (98.5 F) 09/01/2024 12:30 PM CDT Respiratory Rate 18 09/01/2024 1:00 PM CDT Oxygen Saturation 96% 09/01/2024 1:00 PM CDT Inhaled Oxygen Concentration - - Weight 121.1 kg (267 lb) 09/01/2024 9:14 AM CDT Height 188 cm (6' 2) 09/01/2024 9:14 AM CDT Body Mass Index 34.28 09/01/2024 9:14 AM CDT Plan of Treatment Health Maintenance Due Date Last Done Comments Colon Cancer Screening-Colonoscopy 1967 Depression Screening 1967 Hepatitis C Screening 1967 Regular Well Visit/Exam 18-64 1985 Pneumococcal vaccine <65 (1 of 2 - PCV) 1986 Zoster Vaccine (1 of 2) 2017 Covid-19 Vaccine (5 - 2024-2 6 season) 2025 04/19/2022, 04/20/2021, 08/31/2020, Additional history exists Influenza Vaccine (#1) 2025 , 04/19/2022, 04/20/2021, Additional history exists Prostate Cancer Screening-PSA 07/20/2026 07/20/2024 DTaP/Tdap/Td Vaccine (2 - Td or Tdap) 08/28/2031 08/27/2021 Hepatitis B Screening Completed 05/25/2016 , 03/23/2016, 11/19/2014 Medical Devices Implanted Type Area Furnace Attendant Device Identifier Shelf Expiration Date Model / Serial / Lot Intrathecal Pump Right: Abdomen Right Hip Replacement Right: Hip Screws And Plates Right: Ankle Sciatica Nerve Stimulator Back [employer] 2503-A Arthroscopic Delivery System Benton Suture Sterile Disposable - Sn/A - [id number] Implanted:Qty: 1 on 07/24/2018 by Julito Cortez MD at [facility] Left: Shoulder [employer] 01/27/2019 2503-A / N/A / [id number] [employer] 2504-1 Regenerate Tendon Benton Suture - Sn/A - [id number] Implanted:Qty: 1 on 07/24/2018 by Julito Cortez MD at [facility] Left: Shoulder [employer] 06/11/2019 2504-1 / N/A / [id number] [employer] 2169-3 Reconstitute Scaffold Large Mesh Surgical Collagen Sterile Latex - Sn/A - [id number] Implanted:Qty: 1 on 07/24/2018 by Julito Cortez MD at [facility] Left: Shoulder [employer] 10/08/2019 2169-3 / N/A / [id number] [employer] 2504-1 Regenerate Tendon Benton Suture - Sn/A - [id number] Implanted:Qty: 1 on 07/24/2018 by Julito Cortez MD at [facility] Left: Shoulder [employer] 03/21/2019 2504-1 / N/A / [id number] Procedures Procedure Name Priority Date/Time Associated Diagnosis Comments PSA SCREEN Routine 07/20/2024 9:05 AM [employer] Prostate cancer screening from Last 3 Months or Most Recently Relevant to Health Maintenance Results * PSA screen (07/20/2024 9:05 AM [employer]) PSA-Total 1.25 <=3.90 ng/mL Comment: Interpretive Data AGE SEX REFERENCE INTERVAL 0 minutes-150 years Female None 0 minutes-49 years Male None 50-59 years Male 0-3.90 60-69 years Male 0-5.40 70-79 years Male 0-6.20 80-150 years Male 0-6.20 The Chema PSA Total assay procedure was used. Results from different manufacturers or methods may not be comparable. Serial testing should be performed using the same method. Current interpretive data last revised 21. Testing performed by: [facility], [address] [place] [address]., [id number] Blood 07/20/2024 9:05 AM [employer] 07/20/2024 10:43 AM [employer] us Yousef Fan Mendoza MD LAB BLOOD ORDERABLES Final Result [facility] [id number] [facility] [place] [address] from Last 3 Months or Most Recently Relevant to Health Maintenance Insurance [facility] MDCR HMO REF [facility] MEDICARE Address: [address] [address] [place] [address] [employer] [facility] MEDICARE ADVANTAGE [facility] MEDIC[facility] Address: [address] [address] [place] [address] [facility] MEDICARE ADVANTAGE [facility] MEDICARE Address: [address] [address] [place] [address] [employer] [facility] MEDICARE ADVANTAGE [employer] Care Teams Spike Machine Feeder Relationship Specialty Start Date End Date Emerson Schreiber MD PCP - General Family Medicine 05/15/18 Mikael Dowd MD Referring Physician Pain Management 02/26/23 Sohan Owens MD [address] [address] Referring Physician Internal Medicine 08/13/24
--- OUTSIDE RECORDS SUMMARY | 2025-02-21 14:04 | XMS_ITS | Clinical Summary ---
Author Organization [facility] Address [address] [place] [address] Phone Care Team Providers Care House Mover Helper Name Role Phone Emerson Schreiber MD Primary Care Provider Active Problems Problem Noted Date Diagnosed Date Chronic pain syndrome 03/07/2018 Somatic symptom disorder, pe rsistent, severe, with predominant pain 03/07/2018 Social History Tobacco Use Types Packs/Day Years Used Date Smoking Tobacco: Never Assessed Sex and Gender Information Value Date Recorded Sex Assigned at Not on file Legal Sex Male 12:39 AM CDT Gender Identity Not on file Sexual Orientation Not on file Plan of Treatment Health Maintenance Due Date Last Done Comments Hepatitis C Virus (HCV) Screening 1965 TdaP Immunization 1967 Cologuard 2012 Colonoscopy 2012 Colorectal Cancer Screening 2012 Immunochemical Fecal Occult Blood 2012 Pneumococcal Immunization (5 0+ years) (1 of 1 - PCV) 2017 Zoster Immunization (1 of 2) 2017 Influenza Immunization (#1) 02/08/202503/10, 08/13/2014 SARS-COV-2 Immunization ( season) 2025 04/20/2021, 08/31/2020, 08/11/2020 Respiratory Syncytial Virus (RSV) Immunization (Adult) (1 - 1-dose 75+ series) 2042 Hepatitis B Immunization Completed 016, 03/23/2016, 11/19/2014 Human Papillomavirus (HPV) Immunization Aged Out No longer eligible b ased on patient's age to complete this topic Meningococcal Immunization (ACWY) Aged Out No longer eligible b ased on patient's age to complete this topic Rotavirus Immunization Aged Out No lo nger eligible based on patient's age to complete this topic Insurance MEDICAID [place] MEDICARE C [employer] on file MEDICARE C [employer] Care Teams House Mover Helper Relationship Specialty Start Date End Date Emerson Schreiber MD [address] [facility] [address] [place] [address] PCP - General Family Medicine 03/04/18
[2025-02-21 14:07] VITALS: BP 151/117; PULSE 98; RESP 20; TEMP 36.6; O2SAT 97
--- NOTE | 2025-02-21 14:11 | ED.BACK ---
HPI - Back Pain/Injury General Chief Complaint: Back Pain/Injury Stated Complaint: back pain Time Seen by Provider: 02/21/25 14:11 Source: patient Mode of arrival: ambulatory Limitations: no limitations History of Present Illness HPI Narrative: 9-year-old male with a history smoking, cannabis use, hypertension, diabetes mellitus, COPD, AFib status post cardioversion, cervical stenosis with radiculopathy, lumbar stenosis Status post back surgery, with lumbar radiculopathy status post intrathecal pump and nerve stimulator with chronic pain managed by pain management got up this morning and after stretching developed -- low back pain. Pain appears to come around anteriorly like a girdle. No bladder or bowel involvement. No fever. No new motor deficits. The patient has chronic decreased sensation of both his lower legs and foot. MD elicited complaint: back pain Pertinent past history: prior back pain Onset (ago): hour(s) ( 2 hours ago) Timing: constant Severity: moderate Similar Symptoms Previously: Yes Quality: aching Location: lumbar spine Radiation: other ( pain radiates anteriorly) Exacerbating factors: movement Relieving factors: immobilization Work related injury: No Related Data Home Medications ?Medication ?Instructions ?Recorded ?Confirmed ?Last Taken ?Type atorvastatin 20 mg tablet 20 mg PO DAILY 01/26/20 03/28/23 Unknown History duloxetine 60 mg capsule,delayed 60 mg PO DAILY 01/26/20 03/28/23 Unknown History release metoprolol succinate 25 mg 25 mg PO DAILY 01/26/20 03/28/23 Unknown History tablet,extended release 24 hr tamsulosin 0.4 mg capsule 0.4 mg PO DAILY 03/28/23 03/28/23 Unknown History albuterol sulfate 90 mcg/actuation 1 puff inhalation Q4H PRN 08/05/24 Unknown History aerosol inhaler (Ventolin HFA) lidocaine 4 % topical patch 1 patch topical DAILY PRN 08/05/24 Unknown History (Aspercreme (lidocaine)) umeclidinium 62.5 mcg-vilanterol 1 inh inhalation DAILY 08/05/24 Unknown History 25 mcg/actuation powdr for inhalation (Anoro Ellipta) Allergies Allergy/AdvReac Type Severity Reaction Status Date / Time No Known Allergies Allergy Verified 02/21/25 14:07 Review of Systems Review of Systems: All systems reviewed & are unremarkable except as noted in HPI and below Constitutional: Constitutional: Reports as per HPI and Reports no additional constitutional complaints Eyes: Eyes: Reports as per HPI and Reports no additional eye complaints ENT: Reports system reviewed and no additional complaints, except as documented and Reports as per HPI Cardiovascular: Cardiovascular: Reports as per HPI and Reports no additional cardiovascular complaints Respiratory: Respiratory: Reports as per HPI and Reports no additional respiratory complaints Gastrointestinal: Gastrointestinal: Reports as per HPI and Reports no additional gastrointestinal complaints Genitourinary: Genitourinary: Reports no additional male genitourinary complaints and Reports as per HPI Musculoskeletal: Musculoskeletal: Reports no additional musculoskeletal complaints, Reports as per HPI and Reports back pain Comments: chronic neck pain with radiation to both arms chronic low back pain radiating to both legs. New onset low back pain which is radiating anteriorly into the abdomen wall Integumentary/Breasts: Skin/Breast: Reports system reviewed and no additional complaints, except as docu and Reports as per HPI Neurologic: Reports system reviewed and no additional complaints, except as documented and Reports as per HPI Psychiatric: Psychiatric: Reports no additional psychiatric complaints and Reports as per HPI Endocrine: Endocrine: Reports no additional endocrine complaints and Reports as per HPI Hematologic/Lymphatic: Hematologic/Lymphatic: Reports no additional hematologic/lymphatic complaints and Reports as per HPI Allergic/Immunologic: Allergic/Immunologic: Reports no additional allergic/immunologic complaints and Reports as per HPI PMFSH Past Medical History Medical History Arthritis COPD (chronic obstructive pulmonary disease) Depression Chronic back pain Hypertension Surgical History Surgical History H/O shoulder surgery left x2 S/P insertion of spinal cord stimulator H/O lumbosacral spine surgery History of ankle surgery right Hx of right knee surgery Social History Social History Smoking packs per day: 0.25 Smoking cigarettes per day: 5.0 Smoking status: Current some day smoker Tobacco type: cigarettes Additional smoking assessment comments: pt smokes 3-4 cigarettes a day and stated a pack of cigarettes last 4 days Alcohol intake: former Alcohol use details: last used several months ago Substance use: current Substance use type: marijuana Do You Feel Safe in your Home?: Yes Lack of Transportation: YES Lack of Food: Sometimes True Current Housing: I Have Housing Concerned About Future Housing: No Difficulty Paying Gas/Electric Bills: YES Difficulty Paying for Meds: YES Currently Unemployed: No Education: High School Diploma/GED Difficulty w/ Childcare or Family Care: No Living arrangements: with family Gender identity (if verbalized by the patient): Male Exam Narrative: afebrile blood pressure 151/117 Const: General: no acute distress Nutritional Appearance: well nourished Orientation/consciousness: patient oriented x3 Limitations: no limitations HENMT: Head: normal to inspection Ears: external ears normal Face/Nose/Sinus: Normal external nose present Face and sinus: normal facial exam Mouth: Yes Normal oral and palatal mucosa present Throat: posterior oropharynx normal Eyes: Conjunctivae: conjunctivae normal Pupils: Equal, round and reactive pupils present EOM: EOMs intact bilaterally Direct Ophthalmoscopy: no photophobia Neck: Neck: normal visual inspection, no lymphadenopathy and no meningeal signs Chest: Chest palpation & inspection: normal inspection of the chest Resp: Effort & Inspection: normal respiratory effort Auscultation: diminished lung sounds Cardio: Rate: regular rate Rhythm: regular rhythm GI: Auscultation: normal bowel sounds Other: no tenderness/rigidity / rebound. : General: Yes no CVA tenderness Back/Spine/Pelvis: Back: no CVA tenderness Other: Healed incision in the lower lumbar spine. No spinal tenderness noted. Bilateral straight leg raising test is positive. Decreased sensation both legs and feet. Skin: General skin exam: normal color Rashes: no rashes Wounds: no wounds Neuro: General: patient oriented x3, moves all extremities, no meningeal signs, no focal motor deficits and CN's II-XI intact bilaterally Speech: normal speech Other: Decreased sensation both lower legs and feet which is more pronounced on the right no bladder or bowel involvement no perineal /perirectal sensory loss. Extrem: General: normal to inspection and no clubbing, cyanosis or edema Psych: Mental Status: mental status grossly normal Affect: normal affect Attitude: cooperative Course Course Emergency Course: acute on chronic low back pain-- no evidence of cord compression. No bladder or bowel involvement. No no new motor deficits. No perineal sensory loss. CT of the lumbar spine did not show any acute findings. Vital Signs Vital signs: Vital Signs Temperature 36.6 C 02/21/25 14:07 Pulse Rate 98 02/21/25 14:07 Respiratory Rate 20 02/21/25 14:07 Blood Pressure 151/117 H 02/21/25 14:07 Pulse Oximetry 97 02/21/25 14:07 Oxygen Delivery Room Air 02/21/25 14:07 Temperature 36.6 C 02/21/25 14:07 Pulse Rate 98 02/21/25 14:07 Respiratory Rate 20 02/21/25 14:07 Blood Pressure 151/117 H 02/21/25 14:07 Pulse Oximetry 97 02/21/25 14:07 Oxygen Delivery Room Air 02/21/25 14:07 MDM - Back Pain/Injury MDM Narrative Medical decision making narrative: chronic low back pain Differential Diagnosis Differential diagnosis: Likely lumbar radiculopathy, sciatica and strain of lumbar region Medical Records Attestation: I reviewed the patient's medical records. Discharge Plan Discharge Clinical Impression: Chronic back pain Patient Disposition: Home Condition: Stable Instructions: Antibiotic Form, Chronic Back Pain (DC) Patient Language: Guinean Prescriptions: No Action atorvastatin 20 mg tablet 20 mg PO DAILY metoprolol succinate 25 mg tablet extended release 24 hr 25 mg PO DAILY duloxetine 60 mg capsule,delayed release(DR/EC) 60 mg PO DAILY tamsulosin 0.4 mg capsule 0.4 mg PO DAILY Anoro Ellipta 62.5-25 mcg/actuation blister with device 1 inh inhalation DAILY albuterol sulfate [Ventolin HFA] 90 mcg/actuation HFA aerosol inhaler 1 puff inhalation Q4H PRN lidocaine [Aspercreme (lidocaine)] 4 % adhesive patch,medicated 1 patch topical DAILY PRN Follow-up/Referrals: UNKNOWN,DOCTOR [Non-Staff] Time of Disposition: 15:50
--- OUTSIDE RECORDS SUMMARY | 2025-02-21 14:30 | XMS_ITS | Encounter Summary ---
Author Organization [facility] Address [address] [place] [address] Care Team Providers Care Jalousies Installer Name Role Phone Emerson Schreiber MD Primary Care Provider [phone] Celestino Geronimo MD Unavailable [phone] Emerson Schreiber MD Unavailable [phone] Encounter Details Date Type Department Care Team (Late Contact Info) Description 06/26/2018 [facility] at [address] [address] Vijay Bright [place] Social History Tobacco Use Types Packs/Day Years Used Date Smoking Tobacco: Every Day Cigarettes 0.5 36 Smokeless Tobacco: Never Chew Comments:0.5ppd Alcohol Use Standard Drinks/Week Comments Yes 0 (1 standard drink = 0.6 oz pur e alcohol) drinks when plays darts Sex and Gender Information Value Date Recorded Sex Assigned at Male 03/04/2024 8:16 AM CDT Legal Sex Male 3:31 PM STONE SAWYER Gender Identity Male 05/23/2021 2:18 PM STONE SAWYER Sexual Orientation Straight 05/23/2021 2: 18 PM STONE SAWYER Occupation Industry Job Start Date Job End Date Not on file Not on file Not on file Not on file documented as of this encounter Plan of Treatment Upcoming Encounters Date Type Department Care Team (Late st Contact Info) Description 03/03/2025 2:45 PM CDT Office Visit [facility] Medical [facility] General Surgery [address], [address] [place] [address] Linda Maciel MD [address] [address] 03/05/2025 1:00 PM CDT Office Visit [facility] [address] [place] [address] Sandy Alvarez PA 3 [facility], [address] [place] [address] 07/27/2025 1:30 PM STONE SAWYER Office Visit [facility] [address] [place] [address] Chica Heath PA 3 [facility] [address] [place] [address] 08/10/2025 1:00 PM STONE SAWYER Office Visit [facility] Medical Group Family & Internal Medicine [facility] [address] [place] [address] Emerson Schreiber MD [address] [facility] [address] [place] [address] documented as of this encounter Procedures Procedure Name Priority Date/Time Associated Diagnosis Comments COMPREHENSIVE METABOLIC PANEL Routine 06/24/2018 LIPID PANEL Routine 06/24/2018 documented in this encounter Results * LIPID PANEL (06/24/2018) Pathologist [facility] CHOLESTEROL 212 HDL 32 TRIGLYCERIDES 270 LDL (CALCULATED) 126 06/24/2018 us Doc [facility] Final Result * COMPREHENSIVE METABOLIC PANEL (06/24/2018) SODIUM S/P/B 142 POTASSIUM S/P/B 4.7 CO2 27 CHLORIDE S/P/B 105 GLUCOSE 91 mg/dL CALCIUM S/P/B 9.2 BUN 17 CREATININE S/P/B 1.06 0.7 - 1.3 ALKALINE PHOSPHATASE S/P/B 83 ALT 92 AST 47 BILIRUBIN TOTAL S/P/B 0.40 ALBUMIN S/P/B 4.0 3.5 - 5.0 TOTAL PROTEIN S/P/B 7.6 06/24/2018 us Doc [facility] Final Result documented in this encounter Visit Diagnoses Not on filedocumented in this encounter Additional Health Concerns Infection Onset Date Last Indicated Resolved Time COVID-19 Rule Out 08/28/2021 08/28/2021 08/30/2021 12:41 PM CDT COVID-19 Rule Out 09/15/2021 09/15/2021 09/15/2021 7:31 PM CDT COVID-19 Rule Out 03/17/2024 03/17/2024 03/17/2024 1:51 PM CDT COVID-19 Rule Out 03/17/2024 03/17/2024 03/17/2024 2:31 PM CDT COVID-19 Rule Out 03/18/2024 03/18/2024 03/18/2024 5:31 PM CDT documented as of this encounter Care Teams Jalousies Installer Relationship Specialty Start Date End Date Emerson Schreiber MD [address] [facility] [address] [place] [address] PCP - General FAMILY PRACTICE 11/09/15 Emerson Schreiber MD [address] [place], [place] [address] PCP - Med Group - [facility] Attributed Provider FAMILY PRACTICE 08/08/18 06/10/20 Celestino Geronimo MD [facility]. [facility] [address] [place] [address] Mariela Manager Recruiting CARDIOVASCULAR DISEASE 01/14/17 documented as of this encounter
--- OUTSIDE RECORDS SUMMARY | 2025-02-21 14:30 | XMS_ITS | Clinical Summary ---
Author Organization [facility] Address [address] [place] [address] Phone Care Team Providers Care Senior C Web Developer Name Role Phone Emerson Schreiber MD Primary [...] on file MEDICARE C [employer] Care Teams Senior C Web Developer Relationship Specialty Start Date End Date Emerson Schreiber MD [address] [facility] [address] [place] [address] PCP - General Family Medicine 03/04/18
--- OUTSIDE RECORDS SUMMARY | 2025-02-21 14:30 | XMS_ITS | Encounter Summary ---
Author Organization [facility] Address [address] [place] [address] Care Team Providers Care Company Controller Name Role Phone Emreson Schreiber MD Primary Care Provider [phone] Celestino Geronimo MD Unavailable [phone] Emerson Schreiber MD Unavailable [phone] Encounter Details Date Type Department Care Team (Late Contact Info) Description 02/06/2018 Abstract [facility] CONVERSION [address] [place] [address] , Generic ConversionMD Social History Tobacco Use Types Packs/Day Years Used Date Smoking Tobacco: Every Day Cigarettes 0.5 36 Smokeless Tobacco: Never Chew Comments:0.5ppd Alcohol Use Standard Drinks/Week Comments Yes 0 (1 standard drink = 0.6 oz pur e alcohol) drinks when plays darts Sex and Gender Information Value Date Recorded Sex Assigned at Male 03/04/2024 8:16 AM CDT Legal Sex Male 3:31 PM TELEPATHIST Gender Identity Male 05/23/2021 2:18 PM TELEPATHIST Sexual Orientation Straight 05/23/2021 2: 18 PM TELEPATHIST Occupation Industry Job Start Date Job End Date Not on file Not on file Not on file Not on file documented as of this encounter Plan of Treatment Upcoming Encounters Date Type Department Care Team (Late Contact Info) Description 03/03/2025 2:45 PM CDT Office Visit [facility] Medical [facility] General Surgery [facility] [address] [facility], [address] [place] [address] Linda Maciel MD [address] [facility] [address] [address] 03/05/2025 1:00 PM CDT Office Visit [place] [facility] [address] [place] [address] Sandy Alvarez PA 3 [facility], [address] [place] [address] 07/27/2025 1:30 PM TELEPATHIST Office Visit [facility] THREE [facility], [address] [place] [address] Chica Heath PA 3 [facility] [address] [place] [address] 08/10/2025 1:00 PM TELEPATHIST Office Visit [facility] Medical Group Family & Internal Medicine [facility] [address] [place] [address] Emerson Schreiber MD [address] [address] documented as of this encounter Visit Diagnoses Not on filedocumented [...] documented as of this encounter Care Teams Company Controller Relationship Specialty Start Date End Date Emerson Schreiber MD [address] [facility] [address] [place] [address] PCP - General FAMILY PRACTICE 11/09/15 Emerson Schreiber MD [address] [facility] [address] [place] [address] PCP - Med Group - [facility] Attributed Provider FAMILY PRACTICE 08/08/18 06/10/20 Celestino Geronimo MD [facility]. [facility] [address] [place] [address] Mariela Burring Wheel Operator CARDIOVASCULAR DISEASE 01/14/17 documented as of this encounter
--- OUTSIDE RECORDS SUMMARY | 2025-02-21 14:31 | XMS_ITS | Encounter Summary ---
Author Organization [facility] Address [address] [place] [address] Care Team Providers Care Window Dresser Name Role Phone Emerson Schreiber MD Primary Care Provider [phone] Celestnio Geroniom MD Unavailable [phone] Encounter Details Date Type Department Care Team (Late st Contact Info) Description 07/11/2020 [employer] Message Enc [facility] Medical Group Family & Internal Medicine [address] [address] Emerson Schreiber MD [address] [place] [address] RE: Medication Questions Social History Tobacco Use Types Packs/Day Years Used Date Smoking Tobacco: Every Day Cigarettes 0.5 36 Smokeless Tobacco: Never Comments:0.5ppd Alcohol Use Standard Drinks/Week Comments Yes 0 (1 standard drink = 0.6 oz pur e alcohol) drinks when plays darts PHQ-2 Answer Date Recorded PHQ-2 Score - If the patient scores above 3, please move on to questions 3-9 2 01/12/2020 Sex and Gender Information Value Date Recorded Sex Assigned at Male 03/04/2024 8:16 AM CDT Legal Sex Male 3:31 PM DIRECTOR OF SCOUT WORK Gender Identity Male 05/23/2021 2:18 PM DIRECTOR OF SCOUT WORK Sexual Orientation Straight 05/23/2021 2: 18 PM DIRECTOR OF SCOUT WORK Occupation Industry Job Start Date Job End Date Not on file Not on file Not on file Not on file documented as of this encounter Plan of Treatment Upcoming Encounters Date Type Department Care Team (Late st Contact Info) Description 03/03/2025 2:45 PM CDT Office Visit [facility] Medical [facility] General Surgery - [place] [address] [facility], [address] [place] [address] Linda Maciel MD [address] [facility] [address] [address] 03/05/2025 1:00 PM CDT Office Visit [facility] [address] [place] [address] Sandy Alvarez PA 3 [facility], [address] [place] [address] 07/27/2025 1:30 PM DIRECTOR OF SCOUT WORK Office Visit [facility] THREE [facility] [address] [place] [address] Chica Heath PA [address] [facility] [address] [place] [address] 08/10/2025 1:00 PM DIRECTOR OF SCOUT WORK Office Visit [facility] Family & Internal Medicine - [place] [address] [place] [address] Emerson Schreiber MD [address] [facility] [address] [place] [address] documented as of this encounter Visit Diagnoses Not on filedocumented in this encounter Additional Health Concerns Infection Onset Date Last Indicated Resolved Time COVID-19 Rule Out 08/28/2021 08/28/2021 08/30/2021 12:41 PM CDT COVID-19 Rule Out 09/15/2021 09/15/2021 09/15/2021 7:31 PM CDT COVID-19 Rule Out 03/17/2024 03/17/202403/17/2024 1:51 PM CDT COVID-19 Rule Out 03/17/2024 03/17/2024 03/17/2024 2:31 PM CDT COVID-19 Rule Out 03/18/2024 03/18/2024 03/18/2024 5:31 PM CDT documented as of this encounter Care Teams Window Dresser Relationship Specialty Start Date End Date Emerson Schreiber MD [address] [facility] [address] [place] [address] PCP - General FAMILY PRACTICE 11/09/15 Celestino Geronimo MD [facility] [address] [place] [address] Mariela Lighting Fixtures Decorator CARDIOVASCULAR DISEASE 01/14/17 documented as of this encounter
--- OUTSIDE RECORDS SUMMARY | 2025-02-21 14:31 | XMS_ITS | Encounter Summary ---
Author Organization [facility] Address [address] [place] [address] Care Team Providers Care Correctional Therapy Teacher Name Role Phone Emerson Schreiber MD Primary Care Provider [phone] Celestino Geronimo MD Unavailable [phone] Encounter Details Date Type Department Care Team (Late st Contact Info) Description 07/07/2020 [employer] Message Enc [facility] Medical Group Family & Internal Medicine [address] [address] Emerson Schreiber MD [address] [place] [address] RE: Medication Questions Social History Tobacco Use [...] AM CDT Legal Sex Male 3:31 PM JANITOR CARETAKER Gender Identity Male 05/23/2021 2:18 PM JANITOR CARETAKER Sexual Orientation Straight 05/23/2021 2: 18 PM JANITOR CARETAKER Occupation Industry Job Start Date Job End Date Not on file Not on file Not on file Not on file documented as of this encounter Plan of Treatment Upcoming Encounters Date Type Department Care Team (Late st Contact Info) Description 03/03/2025 2:45 PM CDT Office Visit [facility] Medical [facility] General Surgery - [place] [address] [facility], [address] [place] [address] Linda Maciel MD [address] [facility] [address] [address] 03/05/2025 1:00 PM CDT Office Visit [facility] [address] [place] [address] Sandy Alvarez PA 3 [facility], [address] [place] [address] 07/27/2025 1:30 PM JANITOR CARETAKER Office Visit [facility] THREE [facility] [address] [place] [address] Chica Heath PA 3 [facility] [address] [place] [address] 08/10/2025 1:00 PM JANITOR CARETAKER Office Visit [facility] Family & Internal Medicine - [place] [address] [place] [address] Emerson Schreiber MD [address] [facility] [address] [place] [address] documented as of this encounter Visit Diagnoses [...] documented as of this encounter Care Teams Correctional Therapy Teacher Relationship Specialty Start Date End Date Emerson Schreiber MD [address] [facility] [address] [place] [address] PCP - General FAMILY PRACTICE 11/09/15 Celestino Geronimo MD [facility] [address] [place] [address] Mariela Taste Tester CARDIOVASCULAR DISEASE 01/14/17 documented as of this encounter
--- OUTSIDE RECORDS SUMMARY | 2025-02-21 14:31 | XMS_ITS | Encounter Summary ---
Author Organization [facility] Address [address] [place] [address] Care Team Providers Care Senior Windows Systems Administrator Name Role Phone Emerson Schreiber MD Primary Care Provider [phone] Celestino Geronimo MD Unavailable [phone] Encounter Details Date Type Department Care Team (Late st Contact Info) Description 06/01/2021 [employer] Message Enc [facility] Medical [facility] Family & Internal Medicine [address] [address] Emerson Schreiber MD [address] [place] [address] covid test Social History Tobacco Use Types Packs/Day Years Used Date Smoking Tobacco: Every Day Cigarettes 0.3 36 Smokeless Tobacco: Never Comments:0.5ppd Alcohol Use Standard Drinks/Week Comments Yes 0 (1 standard drink = 0.6 oz pur e alcohol) drinks when plays darts PHQ-2 Answer Date Recorded PHQ-2 Score - If the patient scores above 3, please move on to questions 3-9 0 10/18/2020 Sex and Gender Information Value Date Recorded Sex Assigned at Male 03/04/2024 8:16 AM CDT Legal Sex Male 3:31 PM HAZMAT CDL DRIVER Gender Identity Male 05/23/2021 2:18 PM HAZMAT CDL DRIVER Sexual Orientation Straight 05/23/2021 2: 18 PM HAZMAT CDL DRIVER Occupation Industry Job Start Date Job End Date Not on file Not on file Not on file Not on file COVID-19 Exposure Response Date Recorded In the last month, have you been in contact with someone who was confirmed or suspected to have Coronavirus / COVID-19? Unable to assess 05/31/2021 9:48 AM HAZMAT CDL DRIVER documented as of this encounter Progress Notes * Tara Madrid RN - 06/01/2021 3:16 PM CST MA made pt aware of Negative Covid results AT CDL DRIVER documented in this encounter Plan of Treatment Upcoming Encounters Date Type Department Care Team (Late st Contact Info) Description 03/03/2025 2:45 PM CDT Office Visit [facility] General Surgery [facility] [address] [facility] [address] [place] [address] Linda Maciel MD [address] [id number] 03/05/2025 1:00 PM CDT [facility] [address] [place] [address] Sandy Alvarez PA 3 [facility], [address] [place], [place] [address] 07/27/2025 1:30 PM HAZMAT CDL DRIVER Office Visit [facility] THREE [facility] [address] [place], [place] [address] Chica Heath PA 3 [facility] [address] [place], [place] [address] 08/10/2025 1:00 PM HAZMAT CDL DRIVER Office Visit [facility] Family & Internal Medicine [facility] [address] [place] [address] Emerson Schreiber MD [address] [address] documented as of this encounter Visit Diagnoses [...] documented as of this encounter Care Teams Senior Windows Systems Administrator Relationship Specialty Start Date End Date Emreson Schreiber MD 9401 [facility] 112 [place] [address] PCP - General FAMILY PRACTICE 11/09/15 Celestino Geronimo MD [facility] 2800 [place] [address] Mariela Currency Counter CARDIOVASCULAR DISEASE 01/14/17 documented as of this encounter
--- OUTSIDE RECORDS SUMMARY | 2025-02-21 14:31 | XMS_ITS | Encounter Summary ---
Author Organization [facility] Address [address] [place] [address] Care Team Providers Care Outside Machinist Helper Name Role Phone Emerson Schreiber MD Primary Care Provider [phone] Andrez De Paz MD Unavailable Unavailable Celestino Geronimo MD Unavailable [phone] Emerson Schreiber MD Unavailable [phone] Encounter Details Date Type Department Care Team (Late st Contact Info) Description 07/03/2016 Abstract [facility] AT [address] [id number] Vijay Bright MA Social History Tobacco Use Types Packs/Day Years Used Date Smoking Tobacco: Every Day Smokeless Tobacco: Never Comments:0.5ppd Alcohol Use Standard Drinks/Week Comments Yes 0 (1 standard drink = 0.6 oz pur e alcohol) occ Sex and Gender Information Value Date Recorded Sex Assigned at Male 03/04/2024 8:16 AM CDT Legal Sex Male 3:31 PM CONSUMER LOAN UNDERWRITER Gender Identity Male 05/23/2021 2:18 PM CONSUMER LOAN UNDERWRITER Sexual Orientation Straight 05/23/2021 2: 18 PM CONSUMER LOAN UNDERWRITER documented as of this encounter Plan of Treatment Upcoming Encounters Date Type Department Care Team (Late st Contact Info) Description 03/03/2025 2:45 PM CDT Office Visit [facility] Medical [facility] General Surgery [address], [address] [place] [address] Linda Maciel MD [address] [place] [address] 03/05/2025 1:00 PM CDT Office Visit [facility] [address] [place] [address] Sandy Alvarez PA 3 [facility], [address] [place] [address] 07/27/2025 1:30 PM CONSUMER LOAN UNDERWRITER Office Visit [facility] THREE [facility], [place] [place] [address] Chica Heath PA 3 [facility] [address] [place] [address] 08/10/2025 1:00 PM CONSUMER LOAN UNDERWRITER Office Visit [facility] Medical Group Family & Internal Medicine [facility] [address] [place] [address] Emerson Schreiber MD 9401 [facility] [address] [place] [address] documented as of this encounter Procedures Procedure Name Priority Date/Time Associated Diagnosis Comments BASIC METABOLIC PANEL Routine 08/17/2015 LIPID PANEL Routine 08/17/2015 documented in this encounter Results * BASIC METABOLIC PANEL (08/17/2015) SODIUM S/P/B 139 POTASSIUM S/P/B 4.7 CO2 22 CHLORIDE S/P/B 108 GLUCOSE 105 CALCIUM S/P/B 9.4 BUN 10 CREATININE S/P/B 0.85 EGFR NON-AFR. AMER. 277 08/17/2015 us Doc [facility] LABORATORY Final Result * LIPID PANEL (08/17/2015) CHOLESTEROL 204 HDL 28 TRIGLYCERIDES 116 LDL (CALCULATED) 152.8 08/17/2015 us Doc [facility] Abstract LABORATORY Final Result [...] documented as of this encounter Care Teams Outside Machinist Helper Relationship Specialty Start Date End Date Emerson Schreiber MD [address] [place] [address] PCP - General FAMILY PRACTICE 11/09/15 Emerson Schreiber MD [address] [place] [address] PCP - Med Group - [facility] Attributed Provider FAMILY PRACTICE 08/08/18 06/10/20 Andrez De Paz MD [address] [place] [address] Adela Barber Instructor CARDIOVASCULAR DISEASE 06/21/16 01/13/17 Celestino Geronimo MD [facility] [address] [place] [address] Kent Barber Instructor CARDIOVASCULAR DISEASE 01/14/17 documented as of this encounter
--- OUTSIDE RECORDS SUMMARY | 2025-02-21 14:31 | XMS_ITS | Encounter Summary ---
Author Organization [facility] Address [facility] [place] [address] Care Team Providers Care Black Leather Buffer Name Role Phone Naldo Sky MD Primary Care Provider [phone] Emerson Schreiber MD Primary Care Provider [phone] Encounter Details Date Type Department Care Team (Late st Contact Info) Description 12/10/2017 Telephone [facility] [address] [place] [address] Bryn Almodovar MD [address] [place] [address] Social History Tobacco Use Types Packs/Day Years Used Date Smoking Tobacco: Never Assessed Sex and Gender Information Value Date Recorded Sex Assigned at Not on file Legal Sex Male 9:50 AM CDT Gender Identity Not on file Sexual Orientation Not on file documented as of this encounter Miscellaneous Notes * Telephone Encounter - Guerline Bundy - 12/10/2017 3:50 PM CDT Left voicemail to schedule new patient appointment. documented in this encounter Plan of Treatment Not on file documented as of this encounter Visit Diagnoses Not on filedocumented in this encounter Care Teams Black Leather Buffer Relationship Specialty Start Date End Date Naldo Sky MD PCP - General 6/27/18 7/8/18 [place] [address] [place] [address] PCP - General 12/16/17 documented as of this encounter
--- OUTSIDE RECORDS SUMMARY | 2025-02-21 14:31 | XMS_ITS | Encounter Summary ---
Author Organization [facility] Address [address] [place] [address] Care Team Providers Care Crusher Name Role Phone Emerson Schreiber MD Primary Care Provider [phone] Celestino Geronimo MD Unavailable [phone] Encounter Details Date Type Department Care Team (Late st Contact Info) Description 01/30/2021 [employer] Message Enc [facility] Medical Group Family & Internal Medicine [address] [address] Emerson Schreiber MD 9401 [place] [address] RE: Medication Questions Social History Tobacco Use [...] AM CDT Legal Sex Male 3:31 PM DELIVERY AGENT Gender Identity Male 05/23/2021 2:18 PM DELIVERY AGENT Sexual Orientation Straight 05/23/2021 2: 18 PM DELIVERY AGENT Occupation Industry Job Start Date Job End Date Not on file Not on file Not on file Not on file documented as of this encounter Progress Notes * Shelby Suh RN - 01/31/2021 8:44 AM CDT [place] patient. documented in this encounter Plan of Treatment Upcoming Encounters Date Type Department Care Team (Late st Contact Info) Description 03/03/2025 2:45 PM CDT Office Visit [facility] General Surgery - [place] [address] [facility] 300 [place] [address] Linda Maciel MD [address] [address] 03/05/2025 1:00 PM CDT [facility] [address] [place] [address] Sandy Alvarez PA 3 [facility], [address] [place] [address] 07/27/2025 1:30 PM DELIVERY AGENT Office Visit [facility] THREE [facility] [address] [place], [place] [address] Chica Heath PA 3 [facility] [address] [place], [place] [address] 08/10/2025 1:00 PM DELIVERY AGENT Office Visit [facility] Family & Internal Medicine - [place] [address] [place] [address] Emerson Schreiber MD [address] [address] documented as of this encounter Visit Diagnoses [...] documented as of this encounter Care Teams Crusher Relationship Specialty Start Date End Date Emerson Schreiber MD 9401 [facility] [address] [place] [address] PCP - General FAMILY PRACTICE 11/09/15 Celestino Geronimo MD [facility]. [facility] 2800 [place] [address] Mariela Social Worker Health Services CARDIOVASCULAR DISEASE 01/14/17 documented as of this encounter
--- OUTSIDE RECORDS SUMMARY | 2025-02-21 14:31 | XMS_ITS | Encounter Summary ---
Author Organization [facility] Address [address] [place] [address] Care Team Providers Care Foreign Language Interpreter Name Role Phone Emerson Schreiber MD Primary Care Provider [phone] Celestino Geronimo MD Unavailable [phone] Encounter Details Date Type Department Care Team (Latest Contact Info) Description 02/10/2025 Results Follow-Up [facility] [address] [place] [address] Emerson Schreiber MD 9401 [facility] 112 [place] [address] CBC W/DIFF AUTOMATED, COMPREHENSIVE METABOLIC PANEL, LIPID PANEL, PROSTATE SPECIFIC ANTIGEN,SCREENING Social History Tobacco Use Types Packs/Day Years Used Date Smoking Tobacco: Every Day Cigarettes 0.3 36 Passive Smoke Exposure: Current Smokeless Tobacco: Never Comments:1-2 per day Alcohol Use Standard Drinks/Week Comments Yes 0 (1 standard drink = 0.6 oz pur e alcohol) drinks when plays darNerdies [facility] [employer] Answer Date Recorded In the past 12 months has [employer] electric, gas, oil, or water company threatened to shut off services in your home? No 03/17/2024 Humiliation, Afraid, Rape, and Kick questionnair e Answer Date Recorded Within the last year, have y ou been afraid of your partner or ex-partner? No 03/17/2024 Within the last year, have y ou been humiliated or emotionally abused in other ways by your partner or ex-partner? No Within the last year, have y ou been kicked, hit, slapped, or otherwise physically hurt by your partner or ex-partner? No 03/17/2024 Within the last year, have y ou been raped or forced to have any kind of sexual activity by your partner or ex-partner? No 03/17/2024 Overall Financial Resource Strain (CARDIA) Answe r Date Recorded How hard is it for you to pa y for the very basics like food, housing, medical care, and heating? Somewhat hard 03/17/2024 PHQ-2 Answer Date Recorded Patient Health Questionnaire-2 Score 0 12/03/2024 Hunger Vital Sign Answer Date Recorded Within the past 12 months, y ou worried that your food would run out before you got the money to buy more. Never true 03/17/20 24 Within the past 12 months, t he food you bought just didn't last and you didn't have money to get more. Never true 03/17/2024 PRAPARE - Transportation Answer Date Re corded In the past 12 months, has l ack of transportation kept you from medical appointments or from getting medications? No 01/2024 In the past 12 months, has l ack of transportation kept you from meetings, work, or from getting things needed for daily living? No 03/17/2024 Housing Stability Vital Sign Answer Niranjan e Recorded In the last 12 months, was t here a time when you were not able to pay the mortgage or rent on time? No 03/17/2024 In the past 12 months, how m any times have you moved where you were living? 0 03/17/2024 At any time in the past 12 m [facility], were you homeless or living in a alf (including now)? No 03/17/2024 Sex and Gender Information Value Date Recorded Sex Assigned at Male 03/04/2024 8:16 AM CDT Legal Sex Male 3:31 PM MICA BUILDER Gender Identity Male 05/23/2021 2:18 PM MICA BUILDER Sexual Orientation Straight 05/23/2021 2: 18 PM MICA BUILDER Occupation Industry Job Start Date Job End Date Not on file Not on file Not on file Not on file documented as of this encounter Functional Status * Are you deaf or do you have serious difficulty hearing Answer Date of Assessment Author Status No 03/17/2024 8:44 PM CDT Danny Petersen RN Active * Are you blind or do you have serious difficulty seeing, even when wearing glasses? Answer Date of Assessment Author Status No 03/17/2024 8:44 PM CDT Danny Petersen RN Active * Do you have serious difficulty walking or climbing stairs? Answer Date of Assessment Author Status No 03/17/2024 8:44 PM CDT Danny Petersen RN Active * Do you have difficulty dressing or bathing? Answer Date of Assessment Author Status No 03/17/2024 8:44 PM CDT Danny Petersen RN Active * Because of a physical, mental, or emotional condition, do you have difficulty doing errands alone such as visiting a doctor's office or shopping? Answer Date of Assessment Author Status No 03/17/2024 8:44 PM CDT Danny Petersen RN Active documented as of this encounter Mental Status * Because of a physical, mental, or emotional condition, do you have serious difficulty concentrating, remembering, or making decisions? Answer Entry Date Author Status No 03/17/2024 8:44 PM CDT Danny Petersen RN Active documented in this encounter Plan of Treatment Upcoming Encounters Date Type Department Care Team (Late st Contact Info) Description 03/03/2025 2:45 PM CDT Office Visit [facility] General Surgery [facility] [address] [facility] 300 [place] [address] Linda Maciel MD [address] [place] [address] [address] 03/05/2025 1:00 PM CDT [facility] [address] [place] [address] Sandy Alvarez PA 3 [facility], [address] [address] 07/27/2025 1:30 PM MICA BUILDER Office Visit [facility], [place] [place] [address] Chica Heath PA 3 [facility] [address] [place] [address] 08/10/2025 1:00 PM MICA BUILDER Office Visit [facility] Family & Internal Medicine [address] [address] Emerson Schreiber MD 9401 [facility] [address] [place] [address] documented as of this encounter Visit Diagnoses Not on filedocumented in this encounter Additional Health Concerns Assessment Noted Time PHQ-9 Depression Total Score: 9 03/24/20 24 1:21 PM CDT documented as of this encounter Care Teams Foreign Language Interpreter Relationship Specialty Start Date End Date Emerson Schreiber MD 9401 [facility] [address] [place] [address] PCP - General FAMILY PRACTICE 11/09/15 Celestino Geronimo MD Three [facility]. [place] [address] [place] [address] [place] Dye Tub Operator CARDIOVASCULAR DISEASE 01/14/17 documented as of this encounter
--- OUTSIDE RECORDS SUMMARY | 2025-02-21 14:31 | XMS_ITS | Encounter Summary ---
Author Organization [facility] Address [address] [place] [address] Care Team Providers Care Privacy Compliance Manager Name Role Phone Emerson Schreiber MD Primary Care Provider [phone] Celestino Geronimo MD Unavailable [phone] Emerson Schreiber MD Unavailable [phone] Encounter Details Date Type Department Care Team (Late st Contact Info) Description 03/31/2020 MyChart Message Enc [facility] Medical Group Family & Internal Medicine [address] [address] Emerson Schreiber MD [address] [place] [address] RE: Question Social History Tobacco Use Types Packs/Day Years [...] AM CDT Legal Sex Male 3:31 PM RAILROAD AUDITOR Gender Identity Male 05/23/2021 2:18 PM RAILROAD AUDITOR Sexual Orientation Straight 05/23/2021 2: 18 PM RAILROAD AUDITOR Occupation Industry Job Start Date Job End Date Not on file Not on file Not on file Not on file COVID-19 Exposure Response Date Recorded In the last month, have you been in contact with someone who was confirmed or suspected to have Coronavirus / COVID-19? No / Unsure 03/29/2020 2:08 PM CDT documented as of this encounter Progress Notes * Emerson Schreiber MD - 03/31/2020 2:53 PM CDT Ok to take 2 at same time. * Renea Salvador RN - 03/31/2020 2:49 PM CDT Do you want patient to take BID or Daily? * Cat Jones RN - 03/31/2020 1:54 PM CDTFrom: Baldev Natarajan To: Dr. Greyson Schreiber Sent: 03/31/2020 1:34 PM CDT Subject: Question When I increase duloxetine from 1 capsule daily to 2 capsules daily do I take one in the morning and 1 in the evening or both at once? documented in this encounter Plan of Treatment Upcoming Encounters Date Type Department Care Team (Late st Contact Info) Description 03/03/2025 2:45 PM CDT Office Visit [facility] Medical Group General Surgery - [place] [address] [facility] 300 [place] [address] Linda Maciel MD [facility]0 [facility] [address] [address] 03/05/2025 1:00 PM CDT Office [facility] [place] [facility] [address] [place] [address] Sandy Alvarez PA [address] [place] [address], [address] [place] [address] 07/27/2025 1:30 PM RAILROAD AUDITOR Office Visit [facility] THREE [facility], [address] [place] [address] Chica Heath PA 3 [facility] [address] [place] [address] 08/10/2025 1:00 PM RAILROAD AUDITOR Office Visit [facility] Family & Internal Medicine - [place] [address] [place] [address] Emerson Schreiber MD 9494 [facility] [address] [place] [address] documented as of this encounter Visit Diagnoses [...] documented as of this encounter Care Teams Privacy Compliance Manager Relationship Specialty Start Date End Date Emerson Schreiber MD 9401 [facility] [address] [place], [place] [address] PCP - General FAMILY PRACTICE 11/09/15 Emerson Schreiber MD 9401 [facility] [address] [place], [place] [address] PCP - Med Group - [facility] Attributed Provider FAMILY PRACTICE 08/08/18 06/10/20 Celestino Geronimo MD [facility]. [facility] [address] [place] [address] [place] Cotton Sampler CARDIOVASCULAR DISEASE 01/14/17 documented as of this encounter
--- OUTSIDE RECORDS SUMMARY | 2025-02-21 14:31 | XMS_ITS | Clinical Summary ---
Author Organization [facility] Address [facility] [place] [address] Care Team Providers Care Payroll Representative Name Role Phone Emerson Schreiber MD Primary Care Provider [phone] Celestino Geronimo MD Unavailable [phone] Allergies Active Allergy Reactions Criticality Noted Date Comments Tape Rash Medium 02/26/2023 Medications Multiple Vitamins-Mineral s (MULTIVITAMIN ADULT) Tab Take 1 tablet by mouth daily. 06/29/19 17 Active Morphine Sulfate Powder Used with pain pump 05/25/20 22 Active lidocaine (LIDODERM) 5 % Place 1 patch onto the skin daily. 07/12/19 24 Active levalbuterol (XOPENEX HFA) 45 MCG/ACT inhalerIndicatio ns:COPD (chronic obstructive pulmonary disease) ([facility]) Inhale 2 puffs into the lungs every 4 (four) hours as needed for Wheezing or Shortness of breath. 15 g 2 04/14/20 24 Active metoprolol succinate ER (TOPROL-XL) 50 MG 24 hr tabletIndication s:Paroxysmal atrial fibrillation ([facility]) TAKE ONE TABLET BY MOUTH DAILY 90 tablet 08/26/19 25 Active diclofenac sodium (VOLTAREN) 1 % gel Apply 2 g topically. Active fluticasone propionate (FLONASE) 50 MCG/ACT nasal spray 1 spray by Nasal route. Active NARCAN 4 MG/0.1ML nasal spray 09/04/19 25 Active Polyethyl Glycol-Propyl Glycol (SYSTANE) 0.4-0.3 % ophthalmic solution Apply 1 drop to eye. Active apixaban (ELIQUIS) 5 MG tablet TAKE ONE TABLET BY MOUTH TWICE A DAY 60 tablet 3 12/22/19 25 Active atorvastatin (LIPITOR) 20 MG tablet TAKE ONE TABLET BY MOUTH BEDTIME 90 tablet 01/23/20 25 Active atorvastatin (LIPITOR) 40 MG tabletIndication s:Hyperlipidemia , mixed Take 1 tablet (40 mg total) by mouth nightly at bedtime. 90 tablet 02/12/20 25 Active tamsulosin (FLOMAX) 0.4 MG CapIndications:B enign prostatic hyperplasia with weak urinary stream TAKE ONE CAPSULE BY MOUTH DAILY 90 capsule 1 02/12/20 25 Active DULoxetine (CYMBALTA) 60 MG capsuleIndicatio ns:Anxiety TAKE ONE CAPSULE BY MOUTH DAILY 90 capsule 1 02/12/20 25 Active umeclidinium-ralf anterol (ANORO ELLIPTA) 62.5-25 MCG/ACT inhalerIndicatio ns:Chronic obstructive pulmonary disease, unspecified COPD type ([facility]) INHALE ONE PUFF BY MOUTH DAILY 60 each 5 02/12/20 25 Active tamsulosin (FLOMAX) 0.4 MG CapIndications:B enign prostatic hyperplasia with weak urinary stream TAKE ONE CAPSULE BY MOUTH DAILY 90 capsule 11/14/19 25 025 Discontinued DULoxetine (CYMBALTA) 60 MG capsuleIndicatio ns:Anxiety TAKE ONE CAPSULE BY MOUTH DAILY 90 capsule 11/14/19 25 025 Discontinued umeclidinium-ralf anterol (ANORO ELLIPTA) 62.5-25 MCG/ACT inhalerIndicatio ns:Chronic obstructive pulmonary disease, unspecified COPD type ([facility]) INHALE ONE PUFF BY MOUTH DAILY 180 each 1 11/14/19 25 025 Discontinued Active Problems Problem Noted Date Diagnosed Date Paroxysmal atrial fibrillation ([facility]) 03/17/2024 Assessment & Plan (05/19/2024 1:05 PM SATELLITE COMMUNICATIONS OPERATOR): He was found to have new onset atrial fibrillation. Continue metoprolol and start apixaban 5 mg twice a day. He may need a sleep study as part of his afib evaluation. COPD exacerbation ([facility]) 03/17/2024 Claudication 06/21/2023 Assessment & Plan (06/21/2023 1:48 PM SATELLITE COMMUNICATIONS OPERATOR): Recommend evaluating symptoms with STEFAN. Hyperlipidemia, mixed 06/21/2023 Assessment & Plan (05/19/2024 1:04 PM SATELLITE COMMUNICATIONS OPERATOR): LDL was at goal. Continue atorvastatin. Assessment & Plan (06/21/2023 1:49 PM SATELLITE COMMUNICATIONS OPERATOR): I recommended that he have a lipid panel this year. Previous LDL was close to goal. Continue atorvastatin. Obesity (BMI 30-39.9) 04/03/2022 Assessment & Plan (05/19/2024 1:06 PM SATELLITE COMMUNICATIONS OPERATOR): He is obese with a Body mass index is 33 kg/m . He was educated on lifestyle modifications including diet and exercise. Assessment & Plan (04/03/2022 1:54 PM CDT): Encouraged lifestyle modifications Aftercare following surgery 10/03/2021 Superficial incisional surgical site infection 0 10/03/2021 S/P reverse total shoulder arthroplasty, left Left rotator cuff tear arthropathy 08/25/2021 Cubital tunnel syndrome on left 08/25/2021 Sigmoid diverticulosis 12/10/2018 History of colon polyps 11/12/2018 Diverticulosis 11/12/2018 Internal hemorrhoids 11/12/2018 Arthritis of left acromioclavicular joint 2018 Overview (10/16/2018): Overview: Added automatically from request for surgery [id number] Biceps tendinitis of left upper extremity 2018 Overview (10/16/2018): Overview: Added automatically from request for surgery [id number] Complete tear of left rotator cuff 07/07/2018 Overview (10/16/2018): Overview: Added automatically from request for surgery [id number] 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 07/07/2018 Overview (10/16/2018): Overview: Added automatically from request for surgery [id number] Tobacco abuse 06/02/2018 Assessment & Plan (06/21/2023 1:49 PM SATELLITE COMMUNICATIONS OPERATOR): Encourage smoking cessation. Assessment & Plan (03/24/2021 8:00 AM CDT): Tobacco abuse-I did encourage smoking cessation and he is currently down to about 1/4 pack a day or less Chronic pain syndrome 03/07/2018 Somatic symptom disorder, pe rsistent, severe, with predominant pain 03/07/2018 SI (sacroiliac) joint inflammation 08/29/2017 S/P lumbar discectomy 07/16/2017 Lumbar disc herniation 07/16/2017 Hemoptysis 02/14/2017 Wears glasses 02/14/2017 Overview (10/16/2018): Description: broken at this time Dyslipidemia (high LDL; low HDL) 07/10/2016 Essential hypertension 07/10/2016 Assessment & Plan (05/19/2024 1:03 PM SATELLITE COMMUNICATIONS OPERATOR): His blood pressure is well-controlled. Continue metoprolol. Assessment & Plan (06/21/2023 1:48 PM SATELLITE COMMUNICATIONS OPERATOR): His blood pressure is well-controlled. Continue metoprolol. Assessment & Plan (04/03/2022 1:52 PM CDT): Mildly elevated today. Encouraged patient to monitor and inform me in 1 week for further recommendations Assessment & Plan (03/24/2021 8:00 AM CDT): Benign essential hypertension- Blood pressure is well controlled with no changes in regimen at this time. Stopped metoprolol on own --- we will restart - Encouraged to continue to monitor at home and log and call office with any concerns in future. Chest pain 07/09/2016 Carpal tunnel syndrome of left wrist 09/27/2015 Paresthesia of upper extremity 08/18/2015 Elevated cholesterol 01/13/2015 Assessment & Plan (04/03/2022 1:52 PM CDT): Mixed hyperlipidemia- - ASCVD 10 year risk is 10.1% -- Just completed Hep C treatment -- Checking with primary to ensure statin initiation is okay with them. Assessment & Plan (03/24/2021 9:32 AM CDT): Mixed hyperlipidemia-we will start atorvastatin 20 mg daily was stopped by patient - ASCVD 10 year risk is 10.1% -- although currently getting approval for Hep C treatment -- awaiting rx - seen by Dr. Casey Impingement syndrome of left shoulder 01/03/2015 Overview (10/16/2018): Overview: Added automatically from request for surgery [id number] Hepatitis C, chronic (CMS/HCC [facility]/HCC) 4 Resolved Problems Problem Noted Date Diagnosed Date Resolved Date Encounter for screening for malignant neoplasm of colon 11/12/2018 02/19/2020 Encounters Date Type Department Care Team Description 02/11/2025 Orders Only [facility] [id number] [place] [phone] Emerson Schreiber MD 02/10/2025 Results Follow-Up [facility] [address] [place] [address] Emerson Schreiber MD CBC W/DIFF AUTOMATED, COMPREHENSIVE METABOLIC PANEL, LIPID PANEL, PROSTATE SPECIFIC ANTIGEN,SCREENING 02/09/2025 2:13 PM CDT - 02/09/2025 11:59 PM CDT Hospital Encounter [facility] [address] [place] [address] Emerson Schreiber MD Discharge Disposition: Home or Self Care (Routine Discharge) 02/09/2025 1:40 PM CDT Office Visit [facility] [address] [place] [address] Emerson Schreiber MD Follow Up; Hypertension; Leg Pain (Pt c/o burning in legs and feet ) 02/09/2025 Orders Only [facility] [address] [place] [address] Emerson Schreiber MD 02/09/2025 Travel 01/14/2025 1:30 PM CDT Office Visit [facility], [address] [address] Chica Heath PA Atrial Fibrillation (Follow up) 01/14/2025 Travel 12/18/2024 Scan HEALTH INFO SRVCS Scanned, Doc Med Group Procedure (SCAN) 12/03/2024 1:40 PM CDT Office Visit [facility] Family & Internal Medicine [facility] [address] [place] [address] Emerson Schreiber MD Follow Up (Medication management ) 12/03/2024 Travel from Last 3 Months Immunizations Immunization Administration Dates Next Due Fluzone (IIV3, Trivalent, 0. 5 ML Prefilled Syringe) 03/18/2024 Fluzone 6 Months+ Quad (0.5 mL Prefilled Syringe) 04/19/2022,04/20/2021 Hepatitis A/Hepatitis B (Aka Twinrix) 03/23/2016 ,11/19/2014 Hepatitis B 05/25/2016 Hepatitis B (Generic: Adult) 05/25/2016 Hepatitis B (Recombivax Hb 10 Mcg) 05/25/2016 Influenza (Generic) 03/23/2016,08/13/2014 Influenza Adult (Generic) 03/23/2016 PFIZER COVID-19 (ORIGINAL FO RMULATION, PURPLE CAP) mRNA, LNP-S, PF, 30 MCG/0.3 ML DOSE 04/20/2021,08/31/2020,08/11/2020 PFIZER COVID-19 BIVALENT (12 +) mRNA, LNP-S, PF, 30 MCG/0.3 ML DOSE 04/19/2022 Tdap (Generic) 08/27/2021 Family History Medical History Relation Comments Hypertension Father Clotting Disorder Maternal Grandmother Arthritis Mother Heart Attack Mother Hypertension Mother Stroke Mother cva Mother Clotting Disorder Paternal Aunt Clotting Disorder Paternal Uncle Relation Status Comments Father Alive Maternal Grandmother Mother Alive Paternal Aunt Paternal Uncle Social History Tobacco Use Types Packs/Day Years Used Date Smoking Tobacco: Every Day Cigarettes 0.3 36 Passive Smoke Exposure: Current Smokeless Tobacco: Never Tobacco Cessation:Ready to Q uit: No; Counseling Given: Yes Comments:1-2 per day Alcohol Use Standard Drinks/Week Comments Yes 0 (1 standard drink = 0.6 oz pur e alcohol) drinks when plays darts [facility] Utilities Answer Date Recorded In the past 12 months has th e electric, gas, oil, or water company threatened [...] No 03/17/2024 Housing Stability Vital Sign Answer Niarnjan e Recorded In the last 12 months, was t here a time when you were not able to pay the mortgage or rent on time? No 03/17/2024 In the past 12 months, how m any times have you moved where you were living? 0 03/17/2024 At any time in the past 12 m [facility], were you homeless or living in a skilled nursing (including now)? No 03/17/2024 Sex and Gender Information Value Date Recorded Sex Assigned at Male 03/04/2024 8:16 AM CDT Legal Sex Male 3:31 PM SATELLITE COMMUNICATIONS OPERATOR Gender Identity Male 05/23/2021 2:18 PM SATELLITE COMMUNICATIONS OPERATOR Sexual Orientation Straight 05/23/2021 2: 18 PM SATELLITE COMMUNICATIONS OPERATOR Occupation Industry Job Start Date Job End Date Not on file Not on file Not on file Not on file Last Filed Vital Signs Vital Sign Reading Time Taken Comments Blood Pressure 112/75 02/09/2025 1:22 PM CDT Pulse 84 02/09/2025 1:22 PM CDT Temperature 36.3 C (97.4 F) 02/09/2025 1:22 PM CDT Respiratory Rate 14 02/09/2025 1:22 PM CDT Oxygen Saturation 96% 02/09/2025 1:22 PM CDT Inhaled Oxygen Concentration - - Weight 132.5 kg (292 lb) 02/09/2025 1:22 PM CDT Height 188 cm (6' 2) 02/09/2025 1:22 PM CDT Body Mass Index 37.49 02/09/2025 1:22 PM CDT Plan of Treatment Upcoming Encounters Date Type Department Care Team (Late st Contact Info) Description 03/03/2025 2:45 PM CDT Office Visit [facility] General Surgery - [place] [address] [facility], [address] [place] [address] Linda Maciel MD [facility] [address] [address] 03/05/2025 1:00 PM CDT [facility] [id number] [place] [phone] Sandy Alvarez PA [address] [facility], [address] [place] [address] 07/27/2025 1:30 PM SATELLITE COMMUNICATIONS OPERATOR Office Visit [facility], [address] [place] [address] Chica Heath PA 3 [facility] [address] [place], [place] [address] 08/10/2025 1:00 PM SATELLITE COMMUNICATIONS OPERATOR Office Visit [facility] Family & Internal Medicine - [place] [address] [place] [address] Emerson Schreiber MD [address] [facility] [address] [place] [address] Health Maintenance Due Date Last Done Comments Annual Physical 1970 Pneumococcal Vaccine: 50+ Years (1 of 2 - PCV) 1986 Zoster Vaccines (1 of 2) 2017 COVID-19 Vaccine ( season) 2025 04/19/2022, 04/20/2021, 08/31/2020, Additional history exists Colorectal Cancer Screening Colonoscopy (10 Years) 11/26/2028 11/26/2018 DTaP, Tdap and Td Vaccines (2 - Td or Tdap) 08/28/2031 08/27/2021 Hepatitis B Vaccines Completed 05/25/2016, 05/25/2016, 05/25/2016, Additional history exists Hepatitis C Completed 08/15/2021, 07/2021, 07/04/2021, Additional history exists PHQ-2 (Physician [place]) Completed 12/03/2024 Meningococcal B Vaccine Aged Out No l onger eligible based on patient's age to complete this topic Meningococcal Vaccine Aged Out No carmen quin eligible based on patient's age to complete this topic RSV Immunizations Under 20 Months Aged Out No longer eligible based on patient's age to complete this topic Medical Devices Implanted Type Area Equities Analyst Device Identifier Shelf Expiration Date Model / Serial / Lot Cup Humeral Standard Pe Depuy [id number] - [id number] Implanted:Qty : 1 on 09/18/2021 by Joe Casey MD at [facility] Humeral Left: Shoulder DEPUY [id number] 09/07/2025 [id number] / / [id number] Screw Locking Depuy Delta Xtend Lg 30mm - [id number] Implanted:Qty : 1 on 09/18/2021 by Joe Casey MD at [facility] Screw Left: Shoulder DEPUY [id number] 12/07/2025 [id number] / / [id number] Screw Locking Depuy Delta Xtend Lg 36mm - [id number] Implanted:Qty : 1 on 09/18/2021 by Joe Casey MD at [facility] Screw Left: Shoulder DEPUY [id number] 11/07/2025 [id number] / / [id number] Screw Locking Depuy Delta Xtend Lg 36mm - [id number] Implanted:Qty : 1 on 09/18/2021 by Joe Casey MD at [facility] Screw Left: Shoulder DEPUY [id number] 04/09/2026 [id number] / / [id number] Screw Locking Depuy Delta Xtend Lg 24mm - [id number] Implanted:Qty : 1 on 09/18/2021 by Joe Casey MD at [facility] Screw Left: Shoulder DEPUY [id number] 02/07/2026 [id number] / / [id number] Metaglene Depuy Delta Xtend - [id number] Implanted:Qty : 1 on 09/18/2021 by Joe Casey MD at [facility] Shoulder Components Left: Shoulder DEPUY [id number] 06/09/2026 [id number] / / [id number] Epiphysis Modular Eccentric Delta Xtend Depuy - [id number] Implanted:Qty : 1 on 09/18/2021 by Joe Casey MD at [facility] Shoulder Components Left: Shoulder DEPUY [id number] 04/09/2026 [id number] / / [id number] Stimulator Synergy Neuro [id number] Implanted:Qty : 1 on 03/25/2019 by Mikael Dowd MD Stimulator Implant Spine Lumbar [employer] [id number] / [id number] / Delta Xtend Lateralized Glenosphere Standard Implanted:Qty : 1 on 09/18/2021 by Joe Casey MD at [facility] Left: Shoulder [id number] 11/07/2025 [id number] / / [id number] Global Unite Popcoat Standard Stem Implanted:Qty : 1 on 09/18/2021 by Joe Casey MD at [facility] Left: Shoulder [id number] 07/10/2031 [id number] / / [id number] Explanted Type Area Equities Analyst Device Identifier Shelf Expiration Date Model / Serial / Lot Drill Bit Depuy 2.5 - [id number] Explanted:Qty: 1 on 09/18/2021 at [facility] Drill Left: Shoulder DEPUY [id number] / / Procedures Procedure Name Priority Date/Time Associated Diagnosis Comments PROSTATE SPECIFIC ANTIGEN,SCREENING Routine 02/09/2025 2:31 PM CDT Paroxysmal atrial fibrillation (CMS/HCC HHS/HCC) Special screening for malignant neoplasm of prostate Mixed hyperlipidemia LIPID PANEL Routine 02/09/2025 2:31 PM CDT Paroxysmal atrial fibrillation (CMS/HCC [facility]/HCC) Special screening for malignant neoplasm of prostate Mixed hyperlipidemia COMPREHENSIVE METABOLIC PANEL Routine 02/09/2025 2:31 PM CDT Paroxysmal atrial fibrillation (CMS/HCC [facility]HS/HCC) Special screening for malignant neoplasm of prostate Mixed hyperlipidemia CBC W/DIFF AUTOMATED Routine 02/09/2025 2:31 PM CDT Paroxysmal atrial fibrillation (CMS/HCC HHS/HCC) Special screening for malignant neoplasm of prostate Mixed hyperlipidemia ELECTROCARDIOGRAM (NON MIDMARK ACQUIRED) Routine 01/14/2025 1:42 PM CDT Paroxysmal atrial fibrillation (CMS/HCC HHS/HCC) PROCEDURE GENERIC (SCAN ORDER) 12/18/2024 COLONOSCOPY GENERIC (SCAN ORDER) Routine 11/26/2018 HEPATITIS A,B,& C Routine 03/09/2014 7:2 1 PM CDT from Last 3 Months or Most Recently Relevant to Health Maintenance Results * PROSTATE SPECIFIC ANTIGEN,SCREENING (02/09/2025 2:31 PM CDT) PSA 1.88 <4.00 NG/ML 02/09/2025 4:05 PM CDT [facility] Comment: Test was performed using the Siemens method. Results obtained with other assay methods or kits cannot be used interchangeably with results obtained by the Siemens method. 02/09/2025 2:31 PM CDT us Emerson Schreiber MD LABORATORY Final Resul t [facility] [address] [place] [address], [place] [phone] * (ABNORMAL) COMPREHENSIVE METABOLIC PANEL (02/09/2025 2:31 PM CDT) GLUCOSE 104(H) 70 - 99 MG/DL 02/09/2025 3:16 PM CDT [facility] BUN 14 7 - 18 MG/DL 02/09/2025 3:16 PM CDT [facility] CREATININE S/P/B 1.05 0.7 - 1.3 MG/DL 02/09/2025 3:16 PM CDT [facility] SODIUM S/P/B 138 136 - 145 MMOL/L 02/09/2025 3:16 PM CDT [facility] POTASSIUM S/P/B 4.4 3.5 - 5.1 MMOL/L 02/09/2025 3:16 PM CDT [facility] CHLORIDE S/P/B 103 100 - 108 MMOL/L 02/09/2025 3:16 PM CDT [facility] CO2 25.5 21 - 32 MMOL/L 02/09/2025 3:16 PM [facility] CALCIUM S/P/B 9.1 8.5 - 10.1 MG/DL 02/09/2025 3:16 PM [facility] BILIRUBIN TOTAL S/P/B 0.4 0.2 - 1.2 MG/DL 02/09/2025 3:16 PM [facility] TOTAL PROTEIN S/P/B 7.9 6.4 - 8.2 G/DL 02/09/2025 3:16 PM [facility] ALBUMIN S/P/B 3.9 3.4 - 5.0 G/DL 02/09/2025 3:16 PM [facility] AST 20 15 - 37 U/L 02/09/2025 3:16 PM [facility] ALT 43 16 - 60 U/L 02/09/2025 3:16 PM [facility] ALKALINE PHOSPHATASE S/P/B 93 50 - 136 U/L 02/09/2025 3:16 PM [facility] ANION GAP 9.5 5 - 15 MMOL/L 02/09/2025 3:16 PM [facility] BUN CREATININE RATIO 13.3 6 - 26 02/09/2025 3:16 PM [facility] A/G RATIO 1.0 1.0 - 2.0 RATIO 02/09/2025 3:16 PM [facility] GFR ESTIMATE 83(L) >90 ML/MIN/1.7 3 M2 02/09/2025 3:16 PM [facility] Comment: NOTE: eGFR is not calculated for patients <18 years of age. This is an estimated GFR calculation using the new CKD EPI creatinine equation without race and so does not require a correction factor for race. This estimated GFR should not be used for calculating drug doses. 02/09/2025 2:31 PM CDT us Emerson Schreiber MD LABORATORY Final Resul t [facility] [address] [place] [id number], [place] [phone] * (ABNORMAL) LIPID PANEL (02/09/2025 2:31 PM CDT) CHOLESTEROL 191 <200.0 MG/DL 02/09/2025 3:16 PM CDT [facility] TRIGLYCERIDES 182(H) <150 MG/DL 02/09/2025 3:16 PM T [facility] HDL 36(L) >40.0 MG/DL 02/09/2025 3:16 PM T [facility] LDL (CALCULATED) 119(H) <100 MG/DL 02/09/2025 3:16 PM T [facility] Comment:CALCULATED USING THE FRIEDEWALD EQUATION NON HDL CHOLESTEROL 155(H) <130 MG/DL 02/09/2025 3:16 PM T [facility] CHOL/HDL RATIO 5.3(H) 0.0 - 4.5 02/09/2025 3:16 PM T [facility] VLDL CALCULATION 36 5 - 55 MG/DL 02/09/2025 3:16 PM T [facility] LIPID INTERPRETATION 02/09/2025 3:16 PM T [facility] Comment: NIH CONCENSUS REPORT RECOMMENDATIONS: ADULT CHILD LOW RISK: CHOLESTEROL <200 <170 TRIGLYCERIDE <150 --- HDL >=60 --- LDL <100 <110 BORDERLINE: CHOLESTEROL 200-239 170-199 TRIGLYCERIDE 150-199 --- HDL 40-59 --- LDL 100-159 110-129 HIGH RISK: CHOLESTEROL >=240 >=200 TRIGLYCERIDE >=200 --- HDL <40 --- LDL >=160 >=130 02/09/2025 2:31 PM CDT us Emerson Schreiber MD LABORATORY Final Resul t [facility] [address] [place] [id number], * (ABNORMAL) CBC W/DIFF AUTOMATED (02/09/2025 2:31 PM CDT) WBC 9.81 4.4 - 11.0 x10'3/uL 02/09/2025 2:58 PM CDT [facility] RBC 5.01 4.50 - 5.90 x10'6/uL 02/09/2025 2:58 PM CDT [facility] HGB 15.5 14.0 - 17.5 G/DL 02/09/2025 2:58 PM CDT [facility] HCT 44.8 41.5 - 50.4 % 02/09/2025 2:58 PM CDT [facility] MCV 89.4 80.0 - 96.0 FL 02/09/2025 2:58 PM CDT [facility] MCH 30.9 26.5 - 31.4 PG 02/09/2025 2:58 PM CDT [facility] MCHC 34.6 31.9 - 34.8 G/DL 02/09/2025 2:58 PM CDT [facility] RDW 12.3 12.3 - 14.3 % 02/09/2025 2:58 PM CDT [facility] PLT 333 151 - 353 x10'3/uL 02/09/2025 2:58 PM CDT [facility] MPV 10.7 9.7 - 11.9 FL 02/09/2025 2:58 PM CDT [facility] RBC MORPHOLOGY NORMAL 02/09/2025 2:58 PM CDT [facility] PLT MORPH. NORMAL 02/09/2025 2:58 PM CDT [facility] WBC MORPHOLOGY NORMAL 02/09/2025 2:58 PM CDT [facility] LYMPHOCYTES % 30.8 15.8 - 45.0 % 02/09/2025 2:58 PM CDT [facility] NEUTROPHILS % 54.8 42.1 - 71.9 % 02/09/2025 2:58 PM CDT [facility] MONOCYTES % 9.0 5.7 - 12.5 % 02/09/2025 2:58 PM CDT [facility] EOSINOPHILS 3.6 0.0 - 5.6 % 02/09/2025 2:58 PM CDT [facility] BASOPHILS 1.2 0.0 - 1.3 % 02/09/2025 2:58 PM CDT [facility] ABS. NEUTROPHILS 5.38 1.40 - 6.00 x10'3/uL 02/09/2025 2:58 PM CDT [facility] IMMATURE GRANS % 0.6(H) 0.0 - 0.5 % 02/09/2025 2:58 PM CDT [facility] ABS. LYMPHOCYTES 3.02 0.80 - 4.70 x10'3/uL 02/09/2025 2:58 PM CDT [facility] 02/09/2025 2:31 PM CDT us Emerson Schreiber MD LABORATORY Final Resul t [facility] [address] [place] [address], * ELECTROCARDIOGRAM (01/14/2025 1:42 PM CDT) 01/14/2025 1:42 PM CDT Narrative ROYCE DALY - 01/15/2025 9:57 PM CDT [facility] Test Date: 2025-01-14 Pat Name: [facility] Department: 112 Room: Gender: Male Social Staff Worker: : 1965 Requested By: ERNIE GONZALES Order Number: [id number] Reading MD: Ernie Gonzales Measurements Intervals [place] Rate: 92 P: 47 WA: 159 QRS: 72 QRSD: 88 T: 43 QT: 353 QTc: 438 Interpretive Statements SINUS RHYTHM Procedure Note Ernie Gonzales MD - 01/15/2025 [facility] Test Date: 2025-01-14 Pat Name: [facility] Department: 112 Room: Gender: Male Social Staff Worker: : 1965 Requested By: ERNIE GONZALES Order Number: [id number] Reading ALEXIA Gonzales Measurements Intervals [place] Rate: 92 P: 47 WA: 159 QRS: 72 QRSD: 88 T: 43 QT: 353 QTc: 438 Interpretive Statements SINUS RHYTHM us Ernie Gonzales MD PROCEDURES-ORDERABLE NO MILA RGE Final Result [facility] * PROCEDURE GENERIC (SCAN ORDER) (12/18/2024) 12/18/2024 us [facility] Scanned SCANNING Final Resu lt * COLONOSCOPY (11/26/2018) us Documents Scanned SCANNING Final Result * (ABNORMAL) HEPATITIS A,B,& C (03/09/2014 7:21 PM CDT) HAV IGM NON-REACTIVE NR [facility] P TO EPIC CONVERSION HEPATITIS B SURFACE AG NON-REACTIVE NR [facility] TO EPIC CONVERSION HEP B SURFACE AB NON-REACTIVE [facility] TO EPIC CONVERSION HEP B CORE TOTAL AB NON-REACTIVE NR [facility] TO EPIC CONVERSION HEPATITIS C AB REACTIVE CALLED RESULT 1955 NABEEL/CRISTOBAL Rubi CSM READ BACK AND VERIFIED (A) NR [facility] TO EPIC CONVERSION Comment: Result Comment: TESTING PERFORMED AT [facility], A MEMBER OF THE [facility]. 03/09/2014 7:21 PM CDT 03/09/2014 7:21 PM CDT Narrative [facility] TO EPIC CONVERSION - 03/12/2014 8:00 PM CDT Result Communication: No patient communication needed at this time us Emerson Schreiber MD LABORATORY Final Resul t Performing Organization Address City/State/[facility] Co de Phone Number [facility] TO EPIC CONVERSION from Last 3 Months or Most Recently Relevant to Health Maintenance Insurance [id number] [facility] MEDICAID [facility] MEDICAID Advance Directives * Full Code (Latest Code Status on File) Date Activated Date Inactivated Comments 11/09/2024 3:56 PM 11/09/2024 9:07 PM * Full Code Date Activated Date Inactivated Comments 03/17/2024 7:37 PM 03/18/2024 3:54 PM * Full Code Date Activated Date Inactivated Comments 07/16/2017 8:59 PM 07/17/2017 7:48 PM Care Teams Payroll Representative Relationship Specialty Start Date End Date Emerson Schreiber MD [address] [facility] [address] [place] [address] PCP - General FAMILY PRACTICE 11/09/15 Celestino Geronimo MD [facility] [address] [place] [address] Mariela Driller Portable CARDIOVASCULAR DISEASE 01/14/17
--- OUTSIDE RECORDS SUMMARY | 2025-02-21 14:31 | XMS_ITS | Clinical Summary ---
Author Organization [facility] 8 [facility] Address [address] [place] [id number] Care Team Providers Care Instructor Of Nursing Name Role Phone Emerson Schreiber MD Primary Care Provider + Mikael Dowd MD Unavailable [phone] Sohan Owens MD Unavailable [phone] Allergies Active Allergy Reactions Criticality Noted Date Comments Adhesive Rash Medium 02/26/[address] (CYMBALTA) 60 mg capsule Take 1 capsule (60 mg total) by mouth nightly 3 9 Active metoprolol XL (TOPROL-XL) 25 mg 24 hr tablet Take 2 tablets (50 mg total) by mouth daily 1 8 Active cskjefhr-qob-uqg ic-vit K-lycop 400-20-300 mcg tabletIndication s:stop 5 [...] (07/07/2018): Added automatically from request for surgery [id number] Impingement syndrome of left shoulder 07/07/2018 Overview (07/07/2018): Added automatically from request for surgery [id number] Biceps tendinitis of left upper extremity 2018 Overview (07/07/2018): Added automatically from request for surgery [id number] 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 07/07/2018 Overview (07/07/2018): Added automatically from request for surgery [id number] Arthritis of left acromioclavicular joint 2018 Overview (07/07/2018): Added automatically from request for surgery [id number] Chronic pain syndrome 03/07/2018 Somatic symptom disorder, [...] on file Legal Sex Male 4:02 AM 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 Gender Identity Not on file Sexual Orientation [...] 03/23/2016, 11/19/2014 Medical Devices Implanted Type Area Microeconomics Professor Device Identifier Shelf Expiration Date Model / Serial / Lot Intrathecal Pump Right: Abdomen Right Hip Replacement Right: Hip Screws And Plates Right: Ankle Sciatica Nerve Stimulator Back [employer] 2503-A Arthroscopic Delivery System Jewell Suture Sterile Disposable - Sn/A - [id number] Implanted:Qty: 1 on 07/24/2018 by Julito Cortez MD at [facility] Left: Shoulder [employer] 01/27/2019 2503-A / N/A / [id number] [employer] 2504-1 Regenerate Tendon Jewell Suture - Sn/A - [id number] Implanted:Qty: 1 on 07/24/2018 by Julito Cortez MD at [facility] Left: Shoulder [employer] 06/11/2019 2504-1 / N/A / [id number] [employer] 2169-3 Reconstitute Scaffold Large Mesh Surgical Collagen Sterile Latex - Sn/A - [id number] Implanted:Qty: 1 on 07/24/2018 by Julito Cortez MD at [facility] Left: Shoulder [employer] 10/08/2019 2169-3 / N/A / [id number] [employer] 2504-1 Regenerate Tendon Jewell Suture - Sn/A - [id number] Implanted:Qty: 1 on 07/24/2018 by Julito Cortez MD at [facility] Left: Shoulder [employer] 03/21/2019 2504-1 / N/A / [id number] Procedures Procedure Name Priority Date/Time Associated Diagnosis Comments PSA SCREEN Routine 07/20/2024 9:05 AM 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 Prostate cancer screening from Last 3 Months or Most Recently Relevant to Health Maintenance Results * PSA screen (07/20/2024 9:05 AM 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) PSA-Total 1.25 <=3.90 ng/mL Comment: Interpretive Data [...] data last revised 21. Testing performed by: [facility], [address] [place] [address]., [id number] Blood 07/20/2024 9:05 AM 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 07/20/2024 10:43 AM 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 us Yousef Fan Mendoza MD LAB BLOOD ORDERABLES Final Result [facility] [address] [facility] [place] [address] from Last 3 Months or Most Recently Relevant to Health Maintenance Insurance [facility] MDCR HMO REF [facility] MEDIC[facility] Address: [address] [address] [place] [address] IDPA [facility] MEDICARE ADVANTAGE [facility] Address: [address] [address] [place] [address] [facility] MEDICARE ADVANTAGE [facility] Address: [address] [address] [place] [address] IDPA [facility] MEDICARE ADVANTAGE IDPA Care Teams Instructor Of Nursing Relationship Specialty Start Date End Date Emerson Schreiber MD PCP - General Family Medicine 05/15/18 Mikael Dowd MD Referring Physician Pain Management 02/26/23 Sohan Owens MD [address] [address] Referring Physician Internal Medicine 08/13/24
--- OUTSIDE RECORDS SUMMARY | 2025-02-21 14:31 | XMS_ITS | Encounter Summary ---
Author Organization [facility] Address [address] [place] [address] Care Team Providers Care Club Car Attendant Name Role Phone Emerson Schreiber MD Primary Care Provider [phone] Celestino Geronimo MD Unavailable [phone] Emerson Schreiber MD Unavailable [phone] Encounter Details Date Type Department Care Team (Late st Contact Info) Description 11/15/2018 Abstract [facility]FL CONVERSION [address] [place] [address] , Generic Conversion, Social History Tobacco Use Types Packs/Day Years Used Date Smoking Tobacco: Every Day Cigarettes 0.5 36 Smokeless Tobacco: Never Chew Comments:0.5ppd Alcohol Use Standard Drinks/Week Comments Yes 0 (1 standard drink = 0.6 oz pur e alcohol) drinks when plays darts Sex and Gender Information Value Date Recorded Sex Assigned at Male 03/04/2024 8:16 AM CDT Legal Sex Male 3:31 PM PROGRAM DIRECTOR/AIR PERSONALITY Gender Identity Male 05/23/2021 2:18 PM PROGRAM DIRECTOR/AIR PERSONALITY Sexual Orientation Straight 05/23/2021 2: 18 PM PROGRAM DIRECTOR/AIR PERSONALITY Occupation Industry Job Start Date Job End Date Not on file Not on file Not on file Not on file documented as of this encounter Plan of Treatment Upcoming Encounters Date Type Department Care Team (Late st Contact Info) Description 03/03/2025 2:45 PM CDT Office Visit [facility] Medical [facility] General Surgery [address], [address] [place] [address] Linda Maciel MD [address] [address] 03/05/2025 1:00 PM CDT Office Visit [facility] [address] [place] [phone] Sandy Alvarez PA 3 [facility], [address] [place] [address] 07/27/2025 1:30 PM PROGRAM DIRECTOR/AIR PERSONALITY Office Visit [facility] [address] [place] [address] Chica Heath PA 3 [facility] [address] [place] [address] 08/10/2025 1:00 PM PROGRAM DIRECTOR/AIR PERSONALITY Office Visit [facility] Medical Group Family & Internal Medicine [facility] [address] [place] [address] Emerson Schreiber MD [address] [id number] documented as of this encounter Visit Diagnoses [...] documented as of this encounter Care Teams Club Car Attendant Relationship Specialty Start Date End Date Emerson Schreiber MD [address] [place] [address] PCP - General FAMILY PRACTICE 11/09/15 Emerson Schreiber MD [address] [place] [address] PCP - Med Group - [facility] Attributed Provider FAMILY PRACTICE 08/08/18 06/10/20 Celestino Geronimo MD [facility]. [facility] [address] [place] [address] Mariela Beater Head CARDIOVASCULAR DISEASE 01/14/17 documented as of this encounter
--- OUTSIDE RECORDS SUMMARY | 2025-02-21 14:31 | XMS_ITS | Encounter Summary ---
Author Organization [facility] Address [address] [place] [address] Care Team Providers Care Acid Concentrator Name Role Phone Emerson Schreiber MD Primary Care Provider [phone] Celestino Geronimo MD Unavailable [phone] Encounter Details Date Type Department Care Team (Late st Contact Info) Description 11/13/2024 Itaro Message Enc [facility] Medical Group Family & Internal Medicine [address] [address] Joanna, [facility] Provider Due for appointment Social History Tobacco Use Types Packs/Day Years Used Date Smoking Tobacco: Every Day Cigarettes 0.3 36 Passive Smoke Exposure: Current Smokeless Tobacco: Never Comments:1-2 per day Alcohol Use Standard Drinks/Week Comments Yes 0 (1 standard drink = 0.6 oz pur e alcohol) drinks when plays darts [facility] Utilities Answer Date Recorded In the past 12 months has [employer], gas, oil, or water [employer] threatened to shut off services in your [...] Answer Date Recorded Patient Health Questionnaire-2 Score 1 03/24/2024 Hunger Vital Sign Answer Date Recorded Within [...] any time in the past 12 m [facility], were you homeless or living in a usp (including now)? No 03/17/2024 Sex and Gender Information Value Date Recorded Sex Assigned at Male 03/04/2024 8:16 AM CDT Legal Sex Male 3:31 PM MARKET ASSET PROTECTION MANAGER Gender Identity Male 05/23/2021 2:18 PM MARKET ASSET PROTECTION MANAGER Sexual Orientation Straight 05/23/2021 2: 18 PM MARKET ASSET PROTECTION MANAGER Occupation Industry Job Start Date Job End [...] Description 03/03/2025 2:45 PM CDT Office Visit [facility] Medical Group General Surgery [facility] [address] [facility], [address] [place] [address] Linda Maciel MD [address] [place] [address] [address] 03/05/2025 1:00 PM CDT [facility] [address] [place] [phone] Sandy Alvarez PA 3 [facility], [address] [place], [place] [address] 07/27/2025 1:30 PM MARKET ASSET PROTECTION MANAGER [facility] THREE [facility] [address] [place] [address] Chica Heath PA 3 [facility] [address] [place] [address] 08/10/2025 1:00 PM MARKET ASSET PROTECTION MANAGER Office Visit [facility] Medical Group Family & Internal Medicine [address] [address] Emerson Schreiber MD [address] [facility] [address] [place] [address] documented as of this encounter Visit Diagnoses Not on filedocumented in this encounter Additional Health Concerns Assessment Noted Time PHQ-9 Depression Total Score: 9 03/24/20 24 1:21 PM CDT documented as of this encounter Care Teams Acid Concentrator Relationship Specialty Start Date End Date Emerson Schreiber MD [address] [facility] [address] [place] [address] PCP - General FAMILY PRACTICE 11/09/15 Celestino Geronimo MD Three [facility]. [address] [place] [address] Mariela Research Dairy Farm Supervisor CARDIOVASCULAR DISEASE 01/14/17 documented as of this encounter
--- OUTSIDE RECORDS SUMMARY | 2025-02-21 14:31 | XMS_ITS | Clinical Summary ---
Author Organization [facility] Address [address] [place] [address] Care Team Providers Care Sectional Belt Mold Assembler Name Role Phone Emerson Schreiber MD Primary Care Provider [phone] Source Comments [facility] [employer],non-owned Affiliates and Associated Physician Practices is amultiple site organization consisting of ambulatory clinics and hospital sitesin [place], [place], [place] and [place]. This disclosure is being madepursuant to the Care Everywhere program and may not contain all information available regarding this patient. Last updated 18.[facility] [employer] Social History Tobacco Use Types Packs/Day Years Used Date Smoking Tobacco: Never Assessed Sex and Gender Information Value Date Recorded Sex Assigned at Not on file Legal Sex Male 9:50 AM CDT Gender Identity Not on file Sexual Orientation Not on file Plan of Treatment Health Maintenance Due Date Last Done Comments COLOGUARD (AGES 45-75) - COL ON CA SCREENING 1967 COLON MONITORING 1967 COLONOSCOPY - COLON CA SCREENING 1967 CT COLONOGRAPHY - COLON CA SCREENING 1967 Colorectal Cancer Screening 1967 FIT - COLON CA SCREENING 1967 FLEX SIG - COLON CA SCREENING 1967 LIPID TESTING 1967 HIV SCREENING 1982 HEPATITIS C SCREENING 05/04/1985 DTAP/TDAP/TD VACCINES (1 - Tdap) 1986 HEPATITIS B VACCINE (1 of 3 - 19+ 3-dose series) 1986 PNEUMOCOCCAL VACCINE 50+ (1 of 1 - PCV) 2017 ZOSTER VACCINE (1 of 2) 2017 DEPRESSION SCREENING 06/10/2024 COVID-19 VACCINE (2023-2 5 season) 2025 INFLUENZA VACCINE (#1) 2025 HIB VACCINE Aged Out No longer eligi ble based on patient's age to complete this topic HPV VACCINE Aged Out No longer eligi ble based on patient's age to complete this topic MENINGOCOCCAL (Group B) VACC INE SHARED DECISION-MAKING Aged Out No longer eligibl e based on patient's age to complete this topic MENINGOCOCCAL GROUPS A/C/Y/W VACCINE Aged Out No longer eligible b ased on patient's age to complete this topic Insurance MEDICAID - OUT OF STATE [facility] MANAGED MEDICARE ADV [facility] MANAGED MEDICARE ADV Care Teams Sectional Belt Mold Assembler Relationship Specialty [place] [address] [facility] [place] [address] PCP - General 12/16/17
--- OUTSIDE RECORDS SUMMARY | 2025-02-21 14:31 | XMS_ITS | Encounter Summary ---
Author Organization [facility] Address [address] [place] [address] Care Team Providers Care Extension Edger Name Role Phone Emerson Schreiber MD Primary Care Provider [phone] Celestino Geronimo MD Unavailable [phone] Encounter Details Date Type Department Care Team (Late st Contact Info) Description 08/05/2020 InformedDNAt Message Enc [facility] Medical Group Family & Internal Medicine [address] [address] Emerson Schreiber MD [address] [place] [address] Question Social History Tobacco Use Types Packs/Day [...] AM CDT Legal Sex Male 3:31 PM TECHNICAL WRITING LEAD/MGR Gender Identity Male 05/23/2021 2:18 PM TECHNICAL WRITING LEAD/MGR Sexual Orientation Straight 05/23/2021 2: 18 PM TECHNICAL WRITING LEAD/MGR Occupation Industry Job Start Date Job End Date Not on file Not on file Not on file Not on file documented as of this encounter Plan of Treatment Upcoming Encounters Date Type Department Care Team (Late st Contact Info) Description 03/03/2025 2:45 PM CDT Office Visit [facility] Medical [facility] General Surgery - [place] [address] [facility], [address] [place] [address] Linda Maciel MD [address] [facility] [address] [address] 03/05/2025 1:00 PM CDT [facility] [address] [place] [phone] Sandy Alvarez PA 3 [facility], [address] [place] [address] 07/27/2025 1:30 PM TECHNICAL WRITING LEAD/MGR Office Visit [facility] THREE [facility] [address] [place] [address] Chica Heath PA 3 [facility] [address] [place] [address] 08/10/2025 1:00 PM TECHNICAL WRITING LEAD/MGR Office Visit [facility] Family & Internal Medicine - [place] [address] [place] [address] Emerson Schreiber MD [address] [facility] [address] [place] [address] documented as of this encounter Visit Diagnoses [...] documented as of this encounter Care Teams Extension Edger Relationship Specialty Start Date End Date Emerson Schreiber MD [address] [facility] [address] [place] [address] PCP - General FAMILY PRACTICE 11/09/15 Celestino Geronimo MD [facility] [address] [place] [address] Mariela Field Crop Farm Worker CARDIOVASCULAR DISEASE 01/14/17 documented as of this encounter
[2025-02-21] MEDS: ONDANSETRON HCL ODT 4 MG TABLET PO (14:46)
[2025-02-21] MEDS: HYDROmorphone HCL INJ (*CRX) 2 MG/ML VIAL 1 MG IM (14:47)
[2025-02-21 15:00] VITALS: BP 135/86; PULSE 80; RESP 18; O2SAT 94
[2025-02-21 16:00] VITALS: BP 131/81; PULSE 83; RESP 18; O2SAT 95
[2025-02-21 16:13] VITALS: BP 131/81; PULSE 83; RESP 18; TEMP 36.6; O2SAT 95
== END 2025-02-21 16:13 | disposition home or self-care (01) ==
PROVIDERS: Emergency Provider Internal Medicine Critical Care Medicine; PCP Family Medicine Sports Medicine
DX: M54.50 Low back pain, unspecified (principal); G89.29 Other chronic pain; I10 Essential (primary) hypertension; E11.9 Type 2 diabetes mellitus without complications; J44.9 Chronic obstructive pulmonary disease, unspecified; I48.91 Unspecified atrial fibrillation; F17.210 Nicotine dependence, cigarettes, uncomplicated
CPT/HCPCS: 72131; 96372; 99284; A9270; J1171